=== PATIENT | female | born 1940 | race Caucasian/White ===

== ENCOUNTER → 2016-08-09 | Outpatient (CLI) | payer MEDICARE ==
[2016-08-09 08:47] LABS: Basophils % (A) 1 %; CH 32.2; CHCM 33.8; Eosinophils # (A) 0.1 k/uL (0-0.7); Eosinophils % (A) 2 %; HCT 45.2 % (34.0-46.0); HDW 2.39; Luc # (Auto) 0.14; Luc % (Auto) 3; Lymphocytes # (A) 2.3 k/uL (1.0-4.8); Lymphocytes % (A) 46 %; MCH 31.9 pg (25.0-35.0); MCHC 33.3 g/dL (31.0-37.0); MCV 95.8 fL (80.0-100.0); Mean Platelet Volume 7.6; Monocytes # (A) 0.4 k/uL (0-1.0); Monocytes % (A) 7 %; Neutrophils # (A) 2.1 k/uL (1.3-7.7); Neutrophils % (A) 42 %; RBC 4.72 m/uL (3.80-5.40); RDW 12.6 % (11.5-15.5); WBC 5.1 k/uL (3.8-10.6); WBC (Perox) 5.12
[2016-08-09 08:58] LABS: ALT 38 U/L (9-52); AST 27 U/L (14-36); Alkaline Phosphatase 89 U/L (38-126); Anion Gap 9 mmol/L; Blood Urea Nitrogen 14 mg/dL (7-17); Calcium 9.4 mg/dL (8.4-10.2); Carbon Dioxide 28 mmol/L (22-30); Chloride 106 mmol/L (98-107); Cholesterol 182 mg/dL (<200); Glucose 137 mg/dL (74-99); HDL Cholesterol 53 mg/dL (40-60); Non-African American GFR(MDRD) >60 (>60 ml/min/1.73 sqM); Potassium 4.4 mmol/L (3.5-5.1); Sodium 143 mmol/L (137-145); Total Bilirubin 0.7 mg/dL (0.2-1.3); Total Protein 6.8 g/dL (6.3-8.2); Triglycerides 109 mg/dL (<150)
[2016-08-10 08:27] LABS: Hemoglobin A1C 6.8 % (4.2-6.1)
== END | disposition home or self-care (01) ==
LOC: LABWHC1 07:23
PROVIDERS: ATTEND Internal Medicine Geriatric Medicine
DX: E03.9 Hypothyroidism, unspecified (principal); E13.42 Other specified diabetes mellitus with diabetic polyneuropathy; E55.9 Vitamin D deficiency, unspecified; M15.0 Primary generalized (osteo)arthritis
CPT/HCPCS: 36415; 80053; 80061; 82043; 82306; 83036; 84439; 84443; 85025

== ENCOUNTER → 2016-08-24 | Outpatient (CLI) | payer MEDICARE ==
--- NOTE | 2016-08-27 09:20 | MM ---
Reason for exam: screening (asymptomatic). Last mammogram was performed 1 year ago. History: Patient is postmenopausal. Cyst aspiration of the right breast. Physical Findings: A clinical breast exam by your physician is recommended on an annual basis and results should be correlated with mammographic findings. MG Screening Mammo w CAD Bilateral CC and MLO view(s) were taken. Prior study comparison: August 24, 2015, bilateral MG screening mammo w CAD. August 04, 2014, bilateral MG screening mammo w CAD. There are scattered fibroglandular densities. Benign calcifications. No significant changes when compared with prior studies. ASSESSMENT: Benign, BI-RAD 2 RECOMMENDATION: Routine screening mammogram of both breasts in 1 year.
== END | disposition home or self-care (01) ==
LOC: RADMAMWWP 07:59
PROVIDERS: ATTEND Internal Medicine Geriatric Medicine
DX: Z12.31 Encounter for screening mammogram for malignant neoplasm of breast (principal)

== ENCOUNTER 2016-12-13 13:45 | Observation (INO) | payer MEDICARE ==
--- NOTE | 2016-12-13 14:40 | ED ---
General Adult HPI - General Chief complaint: Extremity Injury, Upper Stated complaint: Arm Injury Time Seen by Provider: 12/13/16 14:16 Source: patient Mode of arrival: EMS Limitations: no limitations - History of Present Illness Initial comments: The patient is a 76-year-old female who presents to the ED with a chief complaint of fall and injury. The patient states that she was walking outside on her deck when her grandson accidentally stepped on the back of her shoe. This caused her to fall forward and land on her outstretched right wrist. She then fell onto her left side hitting her left shoulder against the deck. The patient notes that she also hit the left side of her forehead. Patient is mainly complaining of pain in her right wrist as well as her left upper arm. Patient also has injury to the bilateral kneecaps. Patient does take a daily aspirin 81 mg. She denies any loss of consciousness in the fall. She has been ambulatory since the fall occurred. - Related Data Home Medications Medication Instructions Recorded Confirmed Ascorbic Acid [Vitamin C] 500 mg PO DAILY 12/13/16 12/13/16 Aspirin EC [Ecotrin Low Dose] 81 mg PO HS 12/13/16 12/13/16 Calcium Lactate 252 mg PO BID 12/13/16 12/13/16 Cholecalciferol [Vitamin D3] 1,000 unit PO DAILY 12/13/16 12/13/16 Levothyroxine Sodium [Synthroid] 125 mcg PO DAILY 12/13/16 12/13/16 Pioglitazone [Actos] 15 mg PO DAILY 12/13/16 12/13/16 metFORMIN HCL [Glucophage] 1,000 mg PO DAILY 12/13/16 12/13/16 metFORMIN HCL [Glucophage] 500 mg PO HS 12/13/16 12/13/16 Allergies Allergy/AdvReac Type Severity Reaction Status Date / Time meperidine [From Demerol] AdvReac Nausea & Verified 12/13/16 15:17 Vomiting Review of Systems ROS Statement: Those systems with pertinent positive or pertinent negative responses have been documented in the HPI. ROS Other: All systems not noted in ROS Statement are negative. Constitutional: Denies: fever, chills, weakness Eyes: Denies: vision change ENT: Denies: ear pain, throat pain, dental pain Respiratory: Denies: cough, dyspnea, wheezes, hemoptysis, stridor Cardiovascular: Denies: chest pain, palpitations, dyspnea on exertion Endocrine: Denies: fatigue Gastrointestinal: Denies: abdominal pain, nausea, vomiting, diarrhea, constipation Genitourinary: Denies: urgency, dysuria, frequency, hematuria Musculoskeletal: Reports: other (left shoulder pain and right wrist pain) Skin: Denies: rash, lesions Neurological: Denies: headache, weakness Psychiatric: Denies: anxiety, depression Past Medical History Past Medical History: Diabetes Mellitus, Thyroid Disorder History of Any Multi-Drug Resistant Organisms: None Reported Past Surgical History: Hysterectomy, Orthopedic Surgery Past Psychological History: No Psychological Hx Reported Smoking Status: Never smoker Past Alcohol Use History: None Reported Past Drug Use History: None Reported General Exam Limitations: no limitations General appearance: alert, in no apparent distress Head exam: Present: atraumatic, normocephalic Eye exam: Present: normal appearance Pupils: Present: normal accommodation ENT exam: Present: normal exam, mucous membranes moist Neck exam: Present: normal inspection, other (no tenderness to palpation of the spinous processes in the cervical spine) Respiratory exam: Present: normal lung sounds bilaterally. Absent: respiratory distress, wheezes, rales, rhonchi, stridor, chest wall tenderness Cardiovascular Exam: Present: regular rate, normal rhythm GI/Abdominal exam: Present: soft. Absent: distended, tenderness, guarding, rebound Extremities exam: Present: tenderness (over the proximal humerus and right wrist ), normal capillary refill, other (Patient has pain with any movement of the left shoulder. This arm is held in internal rotation and flexion of the elbow. Distal PMS noted to be intact. The right wrist is painful with flexion and extension. Distal PMS noted to be intact.) Back exam: Present: normal inspection, full ROM Neurological exam: Present: alert, oriented X3 Psychiatric exam: Present: normal affect, normal mood Skin exam: Present: warm, dry, intact Course Vital Signs 12/13/16 12/13/16 12/13/16 14:07 16:57 18:53 Temperature 97.6 F 98.7 F Pulse Rate 106 H 78 97 Pulse Rate [ Pulse Oximetery ] Respiratory 18 18 16 Rate Blood Pressure 139/63 151/67 183/78 Blood Pressure [Left Arm] O2 Sat by Pulse 96 94 L 100 Oximetry 12/13/16 12/13/16 12/13/16 18:57 18:58 19:03 Temperature Pulse Rate 94 87 88 Pulse Rate [ Pulse Oximetery ] Respiratory 18 18 18 Rate Blood Pressure 164/56 165/73 163/72 Blood Pressure [Left Arm] O2 Sat by Pulse 98 98 98 Oximetry 12/13/16 12/13/16 12/13/16 19:08 19:13 19:23 Temperature Pulse Rate 90 88 85 Pulse Rate [ Pulse Oximetery ] Respiratory 18 18 18 Rate Blood Pressure 164/70 141/57 157/72 Blood Pressure [Left Arm] O2 Sat by Pulse 97 98 99 Oximetry 12/13/16 21:32 Temperature 98.1 F Pulse Rate Pulse Rate [ 85 Pulse Oximetery ] Respiratory 16 Rate Blood Pressure Blood Pressure 145/77 [Left Arm] O2 Sat by Pulse 96 Oximetry EKG Findings - EKG Comments: EKG Findings:: EKG demonstrates NSR with a left bundle branch block. There are no concerning changes noted. Procedures - Procedural Sedation Procedural Sedation Start Time: 18:45 Procedural Sedation Stop Time: 19:15 Indications: fracture/dislocation reduction ASA Class: II Mallampati Airway Score: 3 Preparation: manager cardiac cath applied, pulse oximeter, supplemental O2 applied, reversal agents at bedside, suction/airway equipment at bedside, IV secured IV Propofol Dose (mgs): 160 Complications: none Interventions: oxygen applied, airway repositioned Patient Tolerated Procedure: well Medical Decision Making - Medical Decision Making The patient is a 76-year-old female who presents to the ED following a fall that occurred earlier today. The patient had a mechanical fall, landing on her right outstretched wrist and left shoulder. Will check x-rays of these extremities. Will also check x-ray of chest and pelvis. CT of the head and C- spine given patient's fall with head injury on aspirin. Check basic lab work. Provide patient with narcotics for pain control. 7:15 PM Patient noted to have a comminuted fracture of the left proximal humerus. Patient was placed in a coaptation splint by Dr. Grullon under procedural sedation. He requested that a small reusable splint be placed on the patient's right wrist. A cast will be placed tomorrow. Unfortunately, we do not have such a splint and, as such, a volar splint was put into place. The patient will be admitted to Dr. Braaksma. I have placed Dr. Chung on consult from Internal Medicine for medical management at Dr. Grullon's request. The patient 's pain is well-controlled at the time of admission. PT and OT has been placed on consult. - Lab Data Result diagrams: 12/13/16 15:36 12/13/16 15:36 Lab Results 12/13/16 12/13/16 12/13/16 Range/Units 15:36 15:36 15:36 WBC 7.2 (3.8-10.6) k/uL RBC 4.48 (3.80-5.40) m/uL Hgb 14.5 (11.4-16.0) gm/dL Hct 42.7 (34.0-46.0) % MCV 95.3 (80.0-100.0) fL MCH 32.4 (25.0-35.0) pg MCHC 34.0 (31.0-37.0) g/dL RDW 13.3 (11.5-15.5) % Plt Count 182 (150-450) k/uL PT 10.9 (9.0-12.0) sec INR 1.1 (<1.1) APTT 19.6 L (22.0-30.0) sec Sodium 137 (137-145) mmol/L Potassium 5.4 H (3.5-5.1) mmol/L Chloride 108 H (98-107) mmol/L Carbon Dioxide 22 (22-30) mmol/L Anion Gap 7 mmol/L BUN 21 H (7-17) mg/dL Creatinine 0.65 (0.52-1.04) mg/dL Est GFR (MDRD) Af Amer >60 (>60 ml/min/1.73 sqM) Est GFR (MDRD) Non-Af >60 (>60 ml/min/1.73 sqM) Glucose 178 H (74-99) mg/dL Calcium 9.4 (8.4-10.2) mg/dL Magnesium 1.9 (1.6-2.3) mg/dL Disposition Clinical Impression: Fracture of proximal humerus, Fracture of radius, Fall, Bilateral knee effusions Disposition: ADMITTED IP TO THIS [facility] Condition: Stable Decision to Admit Reason: Admit from EC Decision Date: 12/13/16 Decision Time: 19:15
[2016-12-13] MEDS ORDERED: HYDROmorphone 1 MG/ML 1 ML SYRINGE IVP STA ×2 (14:50→17:54)
[2016-12-13] MEDS ORDERED: ONDANSETRON 4 MG/2 ML VIAL IVP STA (14:51)
[2016-12-13] MEDS: SODIUM CHLORIDE 0.9% 1,000 ML IV SCH ×2 (15:34→22:14)
[2016-12-13 16:03] LABS: CH 32.3; CHCM 34.1; HCT 42.7 % (34.0-46.0); HDW 2.57; HGB 14.5 gm/dL (11.4-16.0); MCH 32.4 pg (25.0-35.0); MCV 95.3 fL (80.0-100.0); Mean Platelet Volume 8.1; RBC 4.48 m/uL (3.80-5.40); RDW 13.3 % (11.5-15.5); WBC 7.2 k/uL (3.8-10.6)
[2016-12-13 16:16] LABS: Anion Gap 7 mmol/L; Blood Urea Nitrogen 21 mg/dL (7-17); Calcium 9.4 mg/dL (8.4-10.2); Carbon Dioxide 22 mmol/L (22-30); Chloride 108 mmol/L (98-107); Glucose 178 mg/dL (74-99); Magnesium 1.9 mg/dL (1.6-2.3); Non-African American GFR(MDRD) >60 (>60 ml/min/1.73 sqM); Sodium 137 mmol/L (137-145)
[2016-12-13 16:17] LABS: Potassium 5.4 mmol/L (3.5-5.1)
--- NOTE | 2016-12-13 16:27 | CT ---
EXAMINATION TYPE: CT brain yaron lilly DATE OF EXAM: 12/13/2016 COMPARISON: NONE HISTORY: 76-year-old female with fall today. CT DLP: 1954.00 mGycm Automated exposure control for dose reduction was used. Technique: Examination of the head was done in axial plane without intravenous contrast. Coronal and sagittal reconstructions performed. CT of the cervical spine was obtained in axial plane without intravenous injection of contrast mater ial. Coronal and sagittal reformatted images were obtained from the axial views for evaluation of f ractures, spinal alignment and canal. FINDINGS: Head: Beam hardening artifact along the posterior aspect of the posterior cranial fossa causing some limita tions. Within this limitation, no evidence of acute intracranial hemorrhage, acute ischemic changes, mass, mass-effect, or extra-axial fluid collection. There is no effacement of cerebral sulci or basal suba rachnoid cisterns. There is no hydrocephalus. There is no midline shift. Hannah-white matter distinc tion is preserved. Mild patchy deep white matter hypodensities suggest chronic small vessel ischemic disease. No calvarial fracture. Orbits and globes are intact. Paranasal sinuses and mastoid air cells are well pneumatized. Cervical spine: No craniocervical junction of the midbody, predental space widening, or prevertebral soft tissue swel ling. No acute fracture. Moderate to advanced discussion plate degenerative change particularly at C5-C7 levels with disc oste ophyte complexes causing possibly moderate spinal canal stenosis at these levels. There is degenerative grade 1 anterolisthesis at C4-C5 and multilevel facet and uncovertebral joint a rthropathy, particularly towards the left. This causes variable moderate, moderate to severe neuroforaminal stenoses especially in the mid to lo wer cervical spine. Sagittal and coronal reformatted images confirm above findings. COMBINED IMPRESSION: 1. No acute intracranial abnormality seen. Mild patchy changes of chronic small vessel ischemic disea se. 2. 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 No acu te fracture.
--- NOTE | 2016-12-13 16:34 | XR ---
EXAMINATION TYPE: XR chest 1V DATE OF EXAM: 12/13/2016 COMPARISON: NONE HISTORY: 76-year-old female fall, rule out fracture TECHNIQUE: Single frontal view of the chest is obtained. FINDINGS: Heart is upper limits of normal in size. Ectatic/elongated thoracic aorta. Mild diffuse interstitial prominence. No consolidation, pneumothorax, or pleural effusion. IMPRESSION: 1. Ectatic/elongated thoracic aorta. Follow-up as indicated. 2. Otherwise, no acute process seen.
--- NOTE | 2016-12-13 16:37 | XR ---
EXAMINATION TYPE: 2 views left clavicle. 2 views left shoulder. 2 views left humerus. DATE OF EXAM: 12/13/2016 COMPARISON: NONE HISTORY: 76-year-old female fall and left arm pain FINDINGS: Left clavicle: No clavicular shaft fracture. AC joint is congruent. Left shoulder: Subacromial space is preserved. No acute fracture or dislocation seen. Left humerus: Mildly comminuted spiral fracture of the proximal third to mid humeral shaft with poste rior apex angulation. COMBINED IMPRESSION (LEFT UPPER EXTREMITY): Mildly comminuted spiral fracture of the humeral shaft with mild posterior apex angulation.
[2016-12-13 16:38] LABS: INR 1.1 (<1.1); Prothrombin Time 10.9 sec (9.0-12.0)
--- NOTE | 2016-12-13 16:40 | XR ---
EXAMINATION TYPE: XR wrist complete RT DATE OF EXAM: 12/13/2016 COMPARISON: NONE HISTORY: Wrist pain TECHNIQUE: 4 views FINDINGS: There is slight cortical irregularity on the posterior distal radius on the lateral view th at is suspicious for nondisplaced fracture. Carpal bones appear intact. Joint spaces are fairly dede l. There is mild spurring at the first carpometacarpal joint. IMPRESSION: I suspect a nondisplaced 2 cm intra-articular chip fracture of the posterior distal radia l metaphysis that extends to the radiocarpal joint.
[2016-12-13 16:42] LABS: Partial Thromboplastin Time 19.6 sec (22.0-30.0)
--- NOTE | 2016-12-13 16:42 | XR ---
EXAMINATION TYPE: AP view pelvis. 3 views each knee. DATE OF EXAM: 12/13/2016 COMPARISON: NONE HISTORY: 76-year-old female with fall and pain FINDINGS: Pelvis: Degenerative changes at the pubic symphysis. No acute fracture seen. There mild degenerative changes at the hips. Knees: Mild degenerative spurring and suggestion of mild medial compartment joint space narrowing on the lef t. There is a small knee joint effusion on the left. Extensor mechanism is intact. Some meniscal chondrocalcinosis noted on the right. No acute fracture or dislocation seen. COMBINED IMPRESSION (PELVIS AND BILATERAL KNEES): 1. Pelvis without acute osseous abnormality seen. 2. Left knee with small knee joint effusion. No acute osseous abnormality seen. If concern for undergraduate intern al arrangement or occult bony injury, follow-up MRI. 3. Right knee without acute osseous abnormality seen. Mild tricompartmental degenerative spurring.
[2016-12-13] MEDS ORDERED: PROPOFOL 10 MG/ML 20 ML VIAL IV STA (18:17)
[2016-12-13] MEDS ORDERED: NALOXONE 0.4 MG/ML 1 ML VIAL IV PRN (19:16)
[2016-12-13] MEDS ORDERED: HYDROmorphone 1 MG/ML 1 ML SYRINGE IV PRN (19:16)
--- NOTE | 2016-12-13 19:19 | P.HPOR ---
History of Present Illness H&P Date: 12/13/16 The patient is a 76-year-old female with a medical history significant for type 2 diabetes and a thyroid disorder who was brought to the emergency department with multiple extremity complaints. Earlier today the patient was walking down her deck when her grandson stepped on the back of her foot causing her to fall. She denies hitting her head or losing consciousness but had multiple extremity complaints. She was brought to the emergency department where x-rays showed a displaced humeral shaft fracture and a nondisplaced right distal radius fracture. Orthopedics was consulted due to an inability of the patient to safely discharge home. At the time of my evaluation the patient is complaining of left arm pain, right forearm pain, and left knee pain. Past Medical History Past Medical History: Diabetes Mellitus, Thyroid Disorder History of Any Multi-Drug Resistant Organisms: None Reported Past Surgical History: Hysterectomy, Orthopedic Surgery Past Psychological History: No Psychological Hx Reported Smoking Status: Never smoker Past Alcohol Use History: None Reported Past Drug Use History: None Reported Medications and Allergies Home Medications Medication Instructions Recorded Confirmed Type Ascorbic Acid [Vitamin C] 500 mg PO DAILY 12/13/16 12/13/16 History Aspirin EC [Ecotrin Low Dose] 81 mg PO HS 12/13/16 12/13/16 History Calcium Lactate 252 mg PO BID 12/13/16 12/13/16 History Cholecalciferol [Vitamin D3] 1,000 unit PO DAILY 12/13/16 12/13/16 History Levothyroxine Sodium [Synthroid] 125 mcg PO DAILY 12/13/16 12/13/16 History Pioglitazone [Actos] 15 mg PO DAILY 12/13/16 12/13/16 History metFORMIN HCL [Glucophage] 1,000 mg PO DAILY 12/13/16 12/13/16 History metFORMIN HCL [Glucophage] 500 mg PO HS 12/13/16 12/13/16 History Allergies Allergy/AdvReac Type Severity Reaction Status Date / Time meperidine [From Demerol] AdvReac Nausea & Verified 12/13/16 15:17 Vomiting Physical Examination On exam the patient is in moderate distress secondary to pain in her left arm. Her head is normocephalic and atraumatic. She has no cervical tenderness. She demonstrates nonlabored breathing with symmetric chest expansion. Her abdomen is obese but nontender. She has palpable pulses in all extremities. On examination of the left upper extremity there is diffuse swelling and ecchymosis about the arm but no open wounds. She has exquisite tenderness in the arm. The arm is soft and compressible. She has no tenderness along her elbow, forearm, wrist or hands. Sensation is intact to light touch in the distribution of the median ulnar radial and axillary nerves. On examination of the patient's right upper extremity there is no obvious swelling or discoloration of the skin. She has no tenderness over her right shoulder, elbow, or forearm. She has exquisite tenderness at the right wrist. Right upper extremity is motor and sensory intact. On examination of the left lower extremity she has diffuse swelling over the anterior aspect of her knee and the knee effusion. She has no open wounds. She has no pain with passive range of motion of the hip. The thigh is nontender. She has no tenderness down the anterior crest of the tibia. She has no tenderness in her ankle or foot. She is able to actively plantarflex and dorsiflex her ankle and her toes. Examination of the right leg shows no obvious deformities and no overlying skin lesions. She has no tenderness throughout the right leg. Results X-rays of the patient's left humerus show a displaced and angulated midshaft spiral humerus fracture. X-rays of the right wrist show a nondisplaced dorsal lunate facet fracture. X-rays the patient's left knee show arthritis but no acute fractures. - Labs Labs: Abnormal Lab Results - Last 24 Hours (Table) 12/13/16 12/13/16 Range/Units 15:36 15:36 APTT 19.6 L (22.0-30.0) sec Potassium 5.4 H (3.5-5.1) mmol/L Chloride 108 H (98-107) mmol/L BUN 21 H (7-17) mg/dL Glucose 178 H (74-99) mg/dL H & H 12/13/16 Range/Units 15:36 Hgb 14.5 (11.4-16.0) gm/dL Hct 42.7 (34.0-46.0) % Coagulation 12/13/16 Range/Units 15:36 INR 1.1 (<1.1) Result Diagrams: 12/13/16 15:36 12/13/16 15:36 Assessment and Plan (1) Fx humerus shaft-closed Status: Acute Plan: The patient has a displaced and angulated humeral shaft fracture and a nondisplaced distal radius lunate facet fracture. I discussed with the patient and her family that both of these injuries will likely be nonoperative. We discussed the treatment of humeral shaft fractures which includes a period of immobilization in a coaptation splint with valgus mold for 1 week followed by 10 -12 weeks of a fracture brace. The patient had a coaptation splint applied in the emergency department. I recommended placement of a removable wrist splint for the right wrist and a 5 pound weight lifting restriction. The x-rays of the left knee show arthritis but no acute fractures. We will monitor these injuries and repeat x-rays are get advanced imaging if her symptoms worsen or do not improve. Due to the patient's multiple extremity injuries she is unsafe to discharge home. She will be admitted under my care for discharge planning. Internal medicine consult has been placed for assistance with medical management while she is in the hospital. We'll consult social work for discharge planning. After the patient is discharged from the hospital she will need follow-up in the office in 1 week for coaptation splint removal and placement of a fracture brace. I discussed with the patient's family the possibility of fracture nonunion, fracture malunion, displacement and the splint and the possible need for surgery. I will also check a 25-hydroxy vitamin D level and start the patient on calcium and vitamin D for bone health. Procedure: Verbal consent for application of splint to the left arm was obtained. The emergency department physician applied a propofol sedation. The patient had rings on both the right and left hand which were removed prior to placement of her splint. Once the patient was adequately sedated she was sat up in the hospital bed and her arm was abducted. A very well-padded coaptation splint was applied starting in the elbow extending around the elbow up the lateral border of the humerus covering the proximal humerus. The splint was wrapped with an Frantz wrap and a valgus mold was applied. Once the splint material had hardened a sling was applied. Time with Patient: Greater than 30
[2016-12-13 21:33] VITALS: RESP 16
[2016-12-13 22:55] VITALS: BMI 41.6
[2016-12-13] MEDS: HYDROcodone/APAP 5-325MG 1 EACH TAB PO PRN (22:58)
[2016-12-14] MEDS: CALCIUM CARBONATE 500 MG CHEWABLE PO SCH ×3 (04:50→16:43)
[2016-12-14] MEDS: HYDROcodone/APAP 5-325MG 1 EACH TAB PO PRN ×2 (04:52→11:01)
[2016-12-14] MEDS ORDERED: HYDROcodone/APAP 7.5-325MG 1 EACH TAB PO PRN ×2 (11:23)
[2016-12-14] MEDS ORDERED: ACETAMINOPHEN TAB 325 MG TAB PO PRN (11:24)
[2016-12-14] MEDS ORDERED: CHOLECALCIFEROL 1,000 UNIT TAB PO SCH (12:00)
--- NOTE | 2016-12-14 12:14 | P.DS ---
Providers Date of admission: 12/13/16 19:16 Expected date of discharge: 12/14/16 Attending physician: Ehsan Grullon Consults: 12/13/16 19:18 Consult Physician Routine Consulting Provider: Maynor Chung Consult Reason/Comments: Medical Management Do you want consulting provider notified?: Yes Primary care physician: Michele Mckoy - Discharge Diagnosis(es) (1) Fracture of radius Current Visit: Yes Status: Acute Priority: Medium (2) Fx humerus shaft-closed Current Visit: Yes Status: Acute Priority: Medium Hospital Course: Patient was admitted through the emergency department department on 12/13/2016 after a fall at home. She suffered fractures to the left mid humerus and right distal radial facet. She was placed in a coaptation splint of the left shoulder and upper extremity in a removable wrist splint on the right per Dr. Grullon. Her hospital course has remained without complication. On day of discharge her pain is controlled with by mouth medication. She is tolerating by mouth meds and diet, voiding without difficulty, positive flatus. She is denying new complaints. She denies abdominal pain, calf pain, numbness or tingling. The splints are well fitting. Neurovascular status is intact distally in both upper extremities. Less than 2 second second cap refill is present. Motor is intact in bilateral upper and lower extremities. Calves are soft and nontender. Abdomen is soft and nontender. She is afebrile, vital signs are stable, labs within acceptable ranges. Review of systems is negative for fever, chills, chest pain, shortness breath, nausea, vomiting, dizziness, headaches, rashes, bleeding, slurred speech or other. Procedures: Splint applications to the left upper extremity and right upper extremity Patient Condition at Discharge: Stable Plan - Discharge Summary New Discharge Prescriptions: New Docusate [Colace] 100 mg PO BID #60 capsule HYDROcodone/APAP 7.5-325MG [Glasco 7.5-325] 1 - 2 tab PO Q6HR PRN #60 tab PRN Reason: Pain No Action Cholecalciferol [Vitamin D3] 1,000 unit PO DAILY Ascorbic Acid [Vitamin C] 500 mg PO DAILY Calcium Lactate 252 mg PO BID metFORMIN HCL [Glucophage] 1,000 mg PO DAILY metFORMIN HCL [Glucophage] 500 mg PO HS Pioglitazone [Actos] 15 mg PO DAILY Aspirin EC [Ecotrin Low Dose] 81 mg PO HS Levothyroxine Sodium [Synthroid] 125 mcg PO DAILY Discharge Medication List Ascorbic Acid [Vitamin C] 500 mg PO DAILY 12/13/16 [History] Aspirin EC [Ecotrin Low Dose] 81 mg PO HS 12/13/16 [History] Calcium Lactate 252 mg PO BID 12/13/16 [History] Cholecalciferol [Vitamin D3] 1,000 unit PO DAILY 12/13/16 [History] Levothyroxine Sodium [Synthroid] 125 mcg PO DAILY 12/13/16 [History] Pioglitazone [Actos] 15 mg PO DAILY 12/13/16 [History] metFORMIN HCL [Glucophage] 1,000 mg PO DAILY 12/13/16 [History] metFORMIN HCL [Glucophage] 500 mg PO HS 12/13/16 [History] Docusate [Colace] 100 mg PO BID #60 capsule 12/14/16 [Rx] HYDROcodone/APAP 7.5-325MG [Glasco 7.5-325] 1 - 2 tab PO Q6HR PRN #60 tab [Rx] Follow up Appointment(s)/Referral(s): Michele Mckoy MD [Primary Care Provider] - 1-2 days Ehsan Grullon MD [Medical Doctor] - 1 Week Activity/Diet/Wound Care/Special Instructions: Nonweightbearing left upper extremity Nonweightbearing right wrist Maintain splint to the left upper extremity and right upper extremity Take meds as directed Follow-up with Dr. Grullon in office in 1 week, [phone] Discharge Disposition: TRANSFER TO SNF/ECF
--- NOTE | 2016-12-14 12:45 | P.CONS ---
History of Present Illness - Reason for Consult Consult date: 12/14/16 Medical management Requesting physician: Ehsan Grullon - History of Present Illness This is a 76-year-old female one of Dr. Mckoy with a previous medical history significant for diabetes mellitus type 2, hypothyroidism, osteoarthritis , osteopenia, who was walking at the deck yesterday showing her son what needs to be done for her would deck and she was going defer stepdown unfortunately her son stepped on the back of her shoe and she couldn't 3 her foot and she ended up falling down landing on the left shoulder and right arm, she sustained a humeral fracture as well as wrist fracture she was brought into the emergency room at [facility] where she was seen and evaluated by orthopedic surgery Dr. Grullon, and she was placed in the splint and a cast and she was admitted to hospital were asked to see the patient from diabetes management as well as hypothyroidism management. Patient is sitting up in bed she does appear to be in acute distress. She denies any chest pain or shortness breath she has no abdominal pain, nausea, vomiting, diarrhea, she is planing to go for [facility] for physical therapy rehabitation. Review of Systems All systems: negative Constitutional: Denies anorexia, Denies chills, Denies chronic headaches, Denies daytime sleepiness, Denies fatigue, Denies fever, Denies lethargy, Denies malaise, Denies poor appetite, Denies weakness, Denies weight loss Eyes: denies blurred vision, denies pain Ears, nose, mouth and throat: Denies dental pain, Denies dysphagia, Denies headache, Denies mouth pain, Denies sore throat Cardiovascular: Denies chest pain, Denies decreased exercise tolerance, Denies dyspnea on exertion, Denies edema, Denies leg edema, Denies lightheadedness, Denies palpitations, Denies shortness of breath, Denies syncope Respiratory: Denies cough Gastrointestinal: Denies abdominal pain, Denies belching, Denies bloating, Denies constipation, Denies diarrhea, Denies dyspepsia, Denies excessive gas, Denies heartburn, Denies hematemesis, Denies hematochezia, Denies jaundice, Denies loss of appetite, Denies melena, Denies nausea, Denies vomiting Genitourinary: Denies dysuria, Denies hematuria, Denies urgency, Denies urinary frequency Musculoskeletal: Denies myalgias Musculoskeletal: right: hand pain, hand stiffness, hand swelling, wrist pain, wrist stiffness, wrist swelling, left: elbow pain, elbow stiffness, elbow swelling, bilateral: shoulder pain, shoulder stiffness, shoulder swelling, absent: ankle pain, ankle stiffness, ankle swelling, foot pain, foot stiffness, foot swelling, hip pain, hip stiffness, hip swelling, knee pain, knee stiffness , knee swelling Integumentary: Denies pruritus, Denies rash Neurological: Denies aphasia, Denies ataxia, Denies change in speech, Denies confusion, Denies gait dysfunction, Denies head injury, Denies headaches, Denies loss of vision, Denies memory loss, Denies numbness, Denies weakness Psychiatric: Denies anxiety, Denies depression Endocrine: Denies fatigue, Denies weight change Past Medical History Past Medical History: Diabetes Mellitus, Osteoarthritis (OA), Thyroid Disorder History of Any Multi-Drug Resistant Organisms: None Reported Past Surgical History: Hysterectomy, Orthopedic Surgery Additional Past Surgical History / Comment(s): Bilateral cateract removal and intraocular lens inplants Past Psychological History: No Psychological Hx Reported Smoking Status: Never smoker Past Alcohol Use History: None Reported Additional Past Alcohol Use History / Comment(s): Patient is a lifelong nonsmoker. No medical marijuana, marijuana, straight. Use. She drinks wine occasionally. Past Drug Use History: None Reported - Past Family History Father Additional Family Medical History / Comment(s): Father at age 47 with history of diabetes and myocardial infarction at age 38. Mother Additional Family Medical History / Comment(s): Mother at age 100 with known cardiomyopathy. Sister(s) Additional Family Medical History / Comment(s): Patient has 3 sisters with no major medical problems. Patient does not have any brothers. Daughter(s) Additional Family Medical History / Comment(s): Patient has 3 daughters no major medical problems. Medications and Allergies Home Medications Medication Instructions Recorded Confirmed Type Ascorbic Acid [Vitamin C] 500 mg PO DAILY 12/13/16 12/13/16 History Aspirin EC [Ecotrin Low Dose] 81 mg PO HS 12/13/16 12/13/16 History Calcium Lactate 252 mg PO BID 12/13/16 12/13/16 History Cholecalciferol [Vitamin D3] 1,000 unit PO DAILY 12/13/16 12/13/16 History Levothyroxine Sodium [Synthroid] 125 mcg PO DAILY 12/13/16 12/13/16 History Pioglitazone [Actos] 15 mg PO DAILY 12/13/16 12/13/16 History metFORMIN HCL [Glucophage] 1,000 mg PO DAILY 12/13/16 12/13/16 History metFORMIN HCL [Glucophage] 500 mg PO HS 12/13/16 12/13/16 History Allergies Allergy/AdvReac Type Severity Reaction Status Date / Time meperidine [From Demerol] AdvReac Nausea & Verified 12/13/16 15:17 Vomiting Physical Exam Vitals: Vital Signs Temp Pulse Pulse Resp BP BP Pulse Ox 12/14/16 07:00 98.3 F 77 16 147/65 98 12/14/16 04:50 16 12/14/16 01:02 97.5 F L 86 16 114/61 98 12/13/16 21:32 98.1 F 85 16 145/77 96 12/13/16 19:23 85 18 157/72 99 12/13/16 19:13 88 18 141/57 98 12/13/16 19:08 90 18 164/70 97 12/13/16 19:03 88 18 163/72 98 12/13/16 18:58 87 18 165/73 98 12/13/16 18:57 94 18 164/56 98 12/13/16 18:53 97 16 183/78 100 12/13/16 16:57 98.7 F 78 18 151/67 94 L 12/13/16 14:07 97.6 F 106 H 18 139/63 96 Intake and Output 12/13/16 12/14/16 12/14/16 22:59 06:59 14:59 Intake Total 750 100 Output Total 450 Balance 300 100 Intake: Intake, IV Titration 750 Amount Sodium Chloride 0.9% 1, 750 000 ml @ 125 mls/hr IV . Q8H [facility] Rx#:[id number] Oral 100 Output: Urine 450 Other: Voiding Method Bedside Commode Bedside Commode # Voids 1 1 Weight 110 kg - Constitutional General appearance: mild distress - EENT Eyes: anicteric sclerae, EOMI, PERRLA, no ptosis, no scleral icterus, normal appearance ENT: hearing grossly normal, NA/AT, normal oropharynx, no thrush Ears: bilateral: normal - Neck Neck: no lymphadenopathy, normal ROM, no rigidity, no stridor, no thyromegaly Carotids: bilateral: upstroke normal Thyroid: bilateral: normal size - Respiratory Respiratory: bilateral: diminished, negative: dullness, rales, rhonchi, wheezing , prolonged expiration, prolonged inspiration - Cardiovascular Rhythm: regular Heart sounds: normal: S1, S2 Abnormal Heart Sounds: no systolic murmur, no S3 Gallop, no S4 Gallop, no click - Gastrointestinal General gastrointestinal: normal bowel sounds, soft, no splenomegaly, no tenderness, no umbilical hernia, no ventral hernia - Integumentary Integumentary: normal, normal turgor - Neurologic Neurologic: CNII-XII intact - Musculoskeletal Musculoskeletal: gait normal - Psychiatric Psychiatric: A&O x's 3, appropriate affect, intact judgment & insight Results CBC & Chem 7: 12/13/16 15:36 12/13/16 15:36 Labs: Abnormal Lab Results - Last 24 Hours (Table) 12/13/16 12/13/16 12/13/16 Range/Units 15:36 15:36 15:36 APTT 19.6 L (22.0-30.0) sec Potassium 5.4 H (3.5-5.1) mmol/L Chloride 108 H (98-107) mmol/L BUN 21 H (7-17) mg/dL Glucose 178 H (74-99) mg/dL Vitamin D 25-Hydroxy 28.0 L (30.0-100.0) ng/mL Assessment and Plan Plan: Assessment and plan: 1. Left mid shaft humerus spiral fracture displaced. Patient is currently in coaptation splint. Continue patient on current management as per orthopedic surgery. 2. Right lunate bone fracture. Patient is currently in a right wrist splint. 3. Left knee contusion without any evidence of fracture. Continue current pain management. 4. Diabetes mellitus type 2. Continue consistent carbohydrate diet. Continue metformin thousand milligrams morning and 500 mg in evening, continue Actos 15 mg orally once every day, the gym before each meal and bedtime. 5. Hyperthyroidism. Continue Synthroid 125 g orally once every day. 6. Vitamin D deficiency. Continue patient on vitamin D supplement. 7. Saphenous/acidosis. Continue patient on calcium and vitamin D, patient may need to be started on prolia as an outpatient. 8. DVT prophylaxis. Early ablation, bilateral knee-high GIANNA hose. 9. GI prophylaxis. Continue current PPI. 10. Physical therapy evaluation for possible subacute rehab. 11. Thank you for the consult we'll follow with you.
[2016-12-14 14:45] VITALS: BP 184/78; PULSE 80; TEMP 98.4
[2016-12-14] MEDS: SODIUM CHLORIDE 0.9% 1,000 ML IV SCH (16:42)
[2016-12-14] MEDS ORDERED: metFORMIN 500 MG TAB PO SCH (21:00)
[2016-12-14] MEDS ORDERED: CALCIUM CARB-VIT D 250MG-125UN 1 EACH TAB PO SCH (21:00)
[2016-12-15] MEDS ORDERED: LEVOTHYROXINE 125 MCG TAB PO SCH (06:30)
[2016-12-15] MEDS ORDERED: metFORMIN 500 MG TAB PO SCH (07:30)
[2016-12-15] MEDS ORDERED: PIOGLITAZONE 15 MG TAB PO SCH (09:00)
[2016-12-15] MEDS ORDERED: CHOLECALCIFEROL 1,000 UNIT TAB PO SCH (09:00)
== END 2016-12-14 17:45 ==
LOC: EC 13:45 → 3SUR 19:16
PROVIDERS: ADMIT Orthopaedic Surgery; ATTEND Orthopaedic Surgery
DX: S42.342A Displaced spiral fracture of shaft of humerus, left arm, initial encounter for closed fracture (principal); S52.501A Unspecified fracture of the lower end of right radius, initial encounter for closed fracture; W01.0XXA Fall on same level from slipping, tripping and stumbling without subsequent striking against object, initial encounter; Y93.01 Activity, walking, marching and hiking; Y92.008 Other place in unspecified non-institutional (private) residence as the place of occurrence of the external cause; E11.9 Type 2 diabetes mellitus without complications; E07.9 Disorder of thyroid, unspecified; M25.562 Pain in left knee; Z79.82 Long term (current) use of aspirin; Z79.899 Other long term (current) drug therapy; Z79.84 Long term (current) use of oral hypoglycemic drugs; Z88.5 Allergy status to narcotic agent; E66.9 Obesity, unspecified; Z68.41 Body mass index [BMI] 40.0-44.9, adult; M85.80 Other specified disorders of bone density and structure, unspecified site; E03.9 Hypothyroidism, unspecified; M19.90 Unspecified osteoarthritis, unspecified site; Z83.3 Family history of diabetes mellitus; Z82.49 Family history of ischemic heart disease and other diseases of the circulatory system; S80.02XA Contusion of left knee, initial encounter; E55.9 Vitamin D deficiency, unspecified; E87.2 Acidosis
CPT/HCPCS: 24505; 99156; 99157; 96376; 96374; 96375; 99284; 36415; 93005; 97162; 97166; 80048; 83735; 85027; 85610; 85730; 82306; 71010; 73562; 72170; 73000; 73020; 73060; 73110; 72125; 70450; G0378 ×2; J2405; J1170; J2704

== ENCOUNTER → 2017-02-13 | Outpatient (CLI) | payer MEDICARE ==
[2017-02-13 10:47] LABS: Basophils % (A) 1 %; CH 31.4; CHCM 33.3; Eosinophils # (A) 0.1 k/uL (0-0.7); Eosinophils % (A) 2 %; HCT 43.3 % (34.0-46.0); HDW 2.42; HGB 14.8 gm/dL (11.4-16.0); Luc # (Auto) 0.14; Luc % (Auto) 3; Lymphocytes # (A) 2.2 k/uL (1.0-4.8); Lymphocytes % (A) 44 %; MCH 32.3 pg (25.0-35.0); MCHC 34.2 g/dL (31.0-37.0); MCV 94.5 fL (80.0-100.0); Mean Platelet Volume 6.5; Monocytes # (A) 0.3 k/uL (0-1.0); Monocytes % (A) 6 %; Neutrophils # (A) 2.3 k/uL (1.3-7.7); Neutrophils % (A) 45 %; RBC 4.58 m/uL (3.80-5.40); RDW 13.2 % (11.5-15.5); WBC (Perox) 5.31
[2017-02-13 11:01] LABS: ALT 29 U/L (9-52); AST 23 U/L (14-36); Alkaline Phosphatase 115 U/L (38-126); Anion Gap 9 mmol/L; Blood Urea Nitrogen 20 mg/dL (7-17); Calcium 9.4 mg/dL (8.4-10.2); Carbon Dioxide 25 mmol/L (22-30); Chloride 106 mmol/L (98-107); Cholesterol 170 mg/dL (<200); Glucose 134 mg/dL (74-99); HDL Cholesterol 51 mg/dL (40-60); Non-African American GFR(MDRD) >60 (>60 ml/min/1.73 sqM); Potassium 4.2 mmol/L (3.5-5.1); Sodium 140 mmol/L (137-145); Total Bilirubin 0.5 mg/dL (0.2-1.3); Total Protein 6.9 g/dL (6.3-8.2)
[2017-02-13 13:59] LABS: Hemoglobin A1C 6.8 % (4.2-6.1)
[2017-02-13 17:15] LABS: Urine Creatinine 78.1 mg/dL
== END | disposition home or self-care (01) ==
LOC: LABWHC1 10:19
PROVIDERS: ATTEND Internal Medicine Geriatric Medicine
DX: E78.00 Pure hypercholesterolemia, unspecified (principal); D64.9 Anemia, unspecified; I44.7 Left bundle-branch block, unspecified; E03.9 Hypothyroidism, unspecified; E13.42 Other specified diabetes mellitus with diabetic polyneuropathy
CPT/HCPCS: 36415; 80053; 80061; 82043; 82570; 83036; 84439; 84443; 85025

== ENCOUNTER → 2017-09-03 | Outpatient (CLI) | payer MEDICARE ==
--- NOTE | 2017-09-04 13:15 | MM ---
Reason for exam: screening (asymptomatic). Last mammogram was performed 1 year ago. History: Patient is postmenopausal. Cyst aspiration of the right breast. Physical Findings: A clinical breast exam by your physician is recommended on an annual basis and results should be correlated with mammographic findings. MG Screening Mammo w CAD Bilateral CC and MLO view(s) were taken. Prior study comparison: August 24, 2016, bilateral MG screening mammo w CAD. August 24, 2015, bilateral MG screening mammo w CAD. There are scattered fibroglandular densities. No suspicious abnormality. No significant changes when compared with prior studies. ASSESSMENT: Negative, BI-RAD 1 RECOMMENDATION: Routine screening mammogram of both breasts in 1 year.
== END | disposition home or self-care (01) ==
LOC: RADMAMWWP 07:52
PROVIDERS: ATTEND Internal Medicine Geriatric Medicine
DX: Z12.31 Encounter for screening mammogram for malignant neoplasm of breast (principal)
CPT/HCPCS: 77067

== ENCOUNTER → 2017-10-22 | Outpatient (CLI) | payer MEDICARE ==
[2017-10-22 11:55] LABS: Basophils % (A) 1 %; Eosinophils # (A) 0.1 k/uL (0-0.7); Eosinophils % (A) 1 %; HCT 46.9 % (34.0-46.0); HGB 15.8 gm/dL (11.4-16.0); Lymphocytes # (A) 2.3 k/uL (1.0-4.8); Lymphocytes % (A) 40 %; MCH 30.9 pg (25.0-35.0); MCHC 33.6 g/dL (31.0-37.0); MCV 92.1 fL (80.0-100.0); Mean Platelet Volume 7.1; Monocytes # (A) 0.3 k/uL (0-1.0); Monocytes % (A) 6 %; Neutrophils # (A) 2.9 k/uL (1.3-7.7); Neutrophils % (A) 51 %; Platelet Count 241 k/uL (150-450); RBC 5.09 m/uL (3.80-5.40); RDW 12.7 % (11.5-15.5); WBC 5.7 k/uL (3.8-10.6)
[2017-10-22 12:03] LABS: Albumin 4.1 g/dL (3.5-5.0); Calcium 10.2 mg/dL (8.4-10.2); Potassium 4.5 mmol/L (3.5-5.1); Total Bilirubin 0.7 mg/dL (0.2-1.3); Total Protein 7.1 g/dL (6.3-8.2)
[2017-10-22 12:19] LABS: T4, Free (Free Thyroxine) 1.37 ng/dL (0.78-2.19)
[2017-10-22 21:22] LABS: Hemoglobin A1C 6.9 % (4.0-6.0)
== END | disposition home or self-care (01) ==
LOC: LABWHC1 11:04
PROVIDERS: ATTEND Internal Medicine Geriatric Medicine
DX: E03.9 Hypothyroidism, unspecified (principal); E78.00 Pure hypercholesterolemia, unspecified; E13.42 Other specified diabetes mellitus with diabetic polyneuropathy; I44.7 Left bundle-branch block, unspecified; R79.9 Abnormal finding of blood chemistry, unspecified
CPT/HCPCS: 36415; 80053; 80061; 83036; 84439; 84443; 85025

== ENCOUNTER → 2018-09-08 | Outpatient (CLI) | payer MEDICARE ==
[2018-09-08 10:38] LABS: Basophils % (A) 1 %; Eosinophils # (A) 0.1 k/uL (0-0.7); Eosinophils % (A) 2 %; HCT 44.8 % (34.0-46.0); HGB 14.7 gm/dL (11.4-16.0); Lymphocytes % (A) 37 %; MCH 31.3 pg (25.0-35.0); MCHC 32.9 g/dL (31.0-37.0); MCV 95.3 fL (80.0-100.0); Mean Platelet Volume 6.8; Monocytes # (A) 0.3 k/uL (0-1.0); Monocytes % (A) 6 %; Neutrophils # (A) 2.9 k/uL (1.3-7.7); Neutrophils % (A) 53 %; Platelet Count 187 k/uL (150-450); RDW 13.2 % (11.5-15.5); WBC 5.5 k/uL (3.8-10.6)
[2018-09-08 10:50] LABS: ALT 37 U/L (9-52); AST 26 U/L (14-36); Albumin 3.9 g/dL (3.5-5.0); Alkaline Phosphatase 85 U/L (38-126); Anion Gap 4 mmol/L; Blood Urea Nitrogen 15 mg/dL (7-17); Calcium 9.6 mg/dL (8.4-10.2); Carbon Dioxide 26 mmol/L (22-30); Chloride 112 mmol/L (98-107); Cholesterol 179 mg/dL (<200); Glucose 157 mg/dL (74-99); HDL Cholesterol 57 mg/dL (40-60); LDL Cholesterol,Calculated 104 mg/dL (0-99); Potassium 4.4 mmol/L (3.5-5.1); Sodium 142 mmol/L (137-145); Total Bilirubin 0.6 mg/dL (0.2-1.3); Total Protein 6.5 g/dL (6.3-8.2); Triglycerides 89 mg/dL (<150)
[2018-09-08 11:05] LABS: T4, Free (Free Thyroxine) 1.25 ng/dL (0.78-2.19)
--- NOTE | 2018-09-08 11:11 | BD ---
EXAMINATION TYPE: Axial Bone Density DATE OF EXAM: 09/08/2018 COMPARISON: 2013 CLINICAL HISTORY: M [age]. Postmenopausal female. Osteoporosis screening. Height: 5 FT 4 1/2 IN Weight: 223 FRAX RISK QUESTIONS: History of Fracture in Adulthood: YES Secondary Osteoporosis: RISK FACTORS HISTORY OF: History of Wrist Fracture: RT WRIST When: 2017 Surgery to Spine/Hip(right/left)/Wrist (right/left): RT WRIST When: 2017 Active: YES Postmenopausal woman: AGE [age] Lost more than 2 inches in height since high school: YES MEDICATIONS: Thyroid Medications: YES Which medication: LEVOTHYROXINE How Lon YEARS Additional Medications: METFORMIN , THYROID Additional History: EXAM MEASUREMENTS: Bone mineral densitometry was performed using the [employer] System. Bone mineral density as measured about the Lumbar spine is: ----- L1-L4(G/cm2): 1.130 T Score Values are as follows: ----- L2: -0.8 ----- L3: 0.0 ----- L4: 1.0 ----- L1-L4: -0.4 INCREASED 10.3 SINCE STUDY OF 2013 Bone mineral density about the R hip (g/cm2): 0.704 Bone mineral density about the L hip (g/cm2): 0.724 T Score values are as follows: -----R Neck: -2.4 -----L Neck: -2.3 -----R Total: -1.8 -----L Total: -1.0 DECREASED -5.8 SINCE STUDY OF 2013 IMPRESSION: Osteopenia (T Score between -2.5 and -1). There is slightly increased risk of fracture and the patient may be considered for treatment. Re-Screen 2-5 years. NOTE: T-SCORE=SD OF THE YOUNG ADULT MEAN.
[2018-09-08 20:09] LABS: Hemoglobin A1C 7.2 % (4.0-6.0)
--- NOTE | 2018-09-09 10:17 | MM ---
Reason for exam: screening (asymptomatic). Last mammogram was performed 1 year ago. History: Patient is postmenopausal. Cyst aspiration of the right breast. Physical Findings: A clinical breast exam by your physician is recommended on an annual basis and results should be correlated with mammographic findings. MG 3D Screening Mammo W/Cad Bilateral CC and MLO view(s) were taken. Prior study comparison: September 03, 2017, bilateral MG screening mammo w CAD. August 24, 2016, bilateral MG screening mammo w CAD. There are scattered fibroglandular densities. There are benign appearing round vascular calcifications bilaterally. There is chronic nodularity in the left breast. There is no discrete abnormality. ASSESSMENT: Benign, BI-RAD 2 RECOMMENDATION: Routine screening mammogram of both breasts in 1 year.
== END | disposition home or self-care (01) ==
LOC: RADMAMWWP 07:21
PROVIDERS: ATTEND Internal Medicine Geriatric Medicine
DX: Z12.31 Encounter for screening mammogram for malignant neoplasm of breast (principal); M85.80 Other specified disorders of bone density and structure, unspecified site; M15.0 Primary generalized (osteo)arthritis
CPT/HCPCS: 36415; 77063; 77067; 77080; 80053; 80061; 83036; 84439; 84443; 85025

== ENCOUNTER → 2019-03-16 | Outpatient (CLI) | payer MEDICARE ==
[2019-03-16 08:24] LABS: Basophils # (A) 0.1 k/uL (0-0.2); Basophils % (A) 1 %; Eosinophils # (A) 0.2 k/uL (0-0.7); Eosinophils % (A) 3 %; HCT 45.4 % (34.0-46.0); HGB 15.1 gm/dL (11.4-16.0); Lymphocytes # (A) 2.1 k/uL (1.0-4.8); Lymphocytes % (A) 43 %; MCH 31.2 pg (25.0-35.0); MCHC 33.2 g/dL (31.0-37.0); MCV 93.9 fL (80.0-100.0); Mean Platelet Volume 6.5; Monocytes # (A) 0.3 k/uL (0-1.0); Monocytes % (A) 6 %; Neutrophils # (A) 2.2 k/uL (1.3-7.7); Neutrophils % (A) 45 %; Platelet Count 225 k/uL (150-450); RBC 4.84 m/uL (3.80-5.40); RDW 12.8 % (11.5-15.5); WBC 4.8 k/uL (3.8-10.6)
[2019-03-16 16:14] LABS: African American GFR (CKD) 81.8 (60.0-200.0); Albumin 4.1 g/dL (3.80-4.90); Albumin/Globulin Ratio 2.16 (1.60-3.17); Anion Gap 3.8 mmol/L (4.00-12.00); Calcium 9.6 mg/dL (8.7-10.3); Carbon Dioxide 30.2 mmol/L (21.6-31.8); Chol/HDL Ratio 3.15; Globulin 1.9 g/dL (1.6-3.3); LDL Cholesterol,Calculated 104.6 mg/dL (0.0-131.0); Potassium 4.5 mmol/L (3.5-5.5); Total Bilirubin 0.8 mg/dL (0.2-1.2); VLDL Calculation 22.4 mg/dL (5.00-40.00)
[2019-03-16 16:22] LABS: T4, Free (Free Thyroxine) 1.3 ng/dL (0.80-1.80)
== END | disposition home or self-care (01) ==
LOC: LABWHC1 07:44
PROVIDERS: ATTEND Internal Medicine Geriatric Medicine
DX: E11.9 Type 2 diabetes mellitus without complications (principal); E03.9 Hypothyroidism, unspecified; D64.9 Anemia, unspecified
CPT/HCPCS: 36415; 80053; 80061; 82043; 82570; 83036; 84439; 84443; 85025

== ENCOUNTER → 2019-12-11 | Outpatient (CLI) | payer MEDICARE ==
--- NOTE | 2019-12-15 11:17 | MM ---
Reason for exam: screening (asymptomatic). Last mammogram was performed 1 year and 3 months ago. History: Patient is postmenopausal. Cyst aspiration of the right breast. Physical Findings: A clinical breast exam by your physician is recommended on an annual basis and results should be correlated with mammographic findings. MG 3D Screening Mammo W/Cad Bilateral CC and MLO view(s) were taken. Prior study comparison: September 08, 2018, bilateral MG 3d screening mammo w/cad. September 03, 2017, bilateral MG screening mammo w CAD. There are scattered fibroglandular densities. Benign appearing bilateral calcifications. No suspicious abnormality. No significant changes when compared with prior studies. ASSESSMENT: Benign, BI-RAD 2 RECOMMENDATION: Routine screening mammogram of both breasts in 1 year.
== END | disposition home or self-care (01) ==
LOC: RADMAMWWP 07:23
PROVIDERS: ATTEND Internal Medicine Geriatric Medicine
DX: Z12.31 Encounter for screening mammogram for malignant neoplasm of breast (principal); R92.8 Other abnormal and inconclusive findings on diagnostic imaging of breast
CPT/HCPCS: 77063; 77067

== ENCOUNTER → 2020-02-04 | Outpatient (CLI) | payer MEDICARE ==
--- NOTE | 2020-02-04 13:00 | ECHOF ---
Referral Reason:I34.0 Nonrheumatic mitral (valve) insuffic; I65.23 MEASUREMENTS -------- HEIGHT: 165.1 cm WEIGHT: 92.1 kg BP: IVSd: 1.3 cm (0.6 - 1.1) LVIDd: 4.8 cm (3.9 - 5.3) LVPWd: 1.2 cm (0.6 - 1.1) IVSs: 1.6 cm LVIDs: 3.8 cm LVPWs: 1.6 cm LAESV Index (A-L): 17.58 ml/m Ao Diam: 3.2 cm (2.0 - 3.7) AV Cusp: 1.3 cm (1.5 - 2.6) MV EXCURSION: 13.015 mm (> 18.000) MV EF SLOPE: 44 mm/s (70 - 150) EPSS: 1.0 cm MV E Rogelio: 0.52 m/s MV DecT: 240 ms MV A Rogelio: 0.79 m/s MV E/A Ratio: 0.65 RAP: 5.00 mmHg RVSP: 31.46 mmHg FINDINGS -------- Sinus rhythm. This was a technically good study. The left ventricular size is normal. There is mild concentric left ventricular hypertrophy. Overa ll left ventricular systolic function is low-normal with, an EF between 50 - 55 %. The right ventricle is normal in size. The left atrial size is normal. Normal LA size by volume 22+/-6 ml/m2. The right atrial size is normal. Interatrial and interventricular septum intact. There is mild aortic valve sclerosis. There is mild aortic regurgitation. Mild mitral regurgitation is present. Mild tricuspid regurgitation present. Right ventricular systolic pressure is normal at < 35 mmHg. There is no pulmonic regurgitation present. The aortic root size is normal. There is no pericardial effusion. CONCLUSIONS -------- 1. Sinus rhythm. 2. The left ventricular size is normal. 3. There is mild concentric left ventricular hypertrophy. 4. Overall left ventricular systolic function is low-normal with, an EF between 50 - 55 %. 5. The right ventricle is normal in size. 6. The left atrial size is normal. 7. Normal LA size by volume 22+/-6 ml/m2. 8. The right atrial size is normal. 9. There is mild aortic valve sclerosis. 10. There is mild aortic regurgitation. 11. Mild mitral regurgitation is present. 12. Mild tricuspid regurgitation present. 13. Right ventricular systolic pressure is normal at < 35 mmHg. CHAIR POST MACHINE OPERATOR: Suzanna Rodriguez RDCS
--- NOTE | 2020-02-04 15:45 | US ---
EXAMINATION TYPE: US carotid duplex BILAT DATE OF EXAM: 02/04/2020 COMPARISON: NONE CLINICAL HISTORY: I34.0 Nonrheumatic mitral (valve) insufficieny; I65.23. memory loss, no h/o stroke EXAM MEASUREMENTS: RIGHT: Peak Systolic Velocity (PSV) cm/sec ----- Right CCA: 68.6 ----- Right ICA: 58.7 ----- Right ECA: 50.3 ICA/CCA ratio: 0.9 RIGHT: End Diastole cm/sec ----- Right CCA: 14.5 ----- Right ICA: 14.5 ----- Right ECA: 5.4 LEFT: Peak Systolic Velocity (PSV) cm/sec ----- Left CCA: 55.0 ----- Left ICA: 65.8 ----- Left ECA: 52.5 ICA/CCA ratio: 1.2 LEFT: End Diastole cm/sec ----- Left CCA: 10.6 ----- Left ICA: 13.0 ----- Left ECA: 6.1 VERTEBRALS (direction of flow): Right Vertebral: Antegrade Left Vertebral: Antegrade Rhythm: Normal Mild plaque seen within the bilateral carotid bulbs. No significant stenosis seen. IMPRESSION: No hemodynamically significant stenosis of the bilateral carotid arteries. Any stenosis that may be present is less than 50%. Criteria for Assigning % of Stenosis / Diameter reduction (Estimation based on the indirect measurements of the internal carotid artery velocities (ICA PSV). 1. Normal (no stenosis)=ICA PSV < 125 cm/s: ratio < 2.0: ICA EDV<40 cm/s. 2. Less than 50% stenosis=ICA PSV < 125 cm/s: ratio < 2.0: ICA EDV<40 cm/s. 3. 50 to 69% stenosis=ICA PSV of 125 to 230 cm/s: ration 2.0 ? 4.0: ICA EDV 40-100 cm/s. 4. Greater than 70% stenosis to near occlusion= ICA PSV > 230 cm/s: ratio > 4.0: ICA EDV > 100 cm/s. 5. Near occlusion= ICA PSV velocities may be low or undetectable: variable ratio and ICA EDV. 6. Total occlusion=unable to detect flow.
== END | disposition home or self-care (01) ==
LOC: RADECHMAIN 11:56
PROVIDERS: ATTEND Internal Medicine Geriatric Medicine
DX: I65.23 Occlusion and stenosis of bilateral carotid arteries (principal); I08.3 Combined rheumatic disorders of mitral, aortic and tricuspid valves; I34.0 Nonrheumatic mitral (valve) insufficiency
CPT/HCPCS: 93306; 93880

== ENCOUNTER → 2020-05-12 | Outpatient (CLI) | payer MEDICARE ==
[2020-05-12 11:23] LABS: Basophils # (A) 0.1 k/uL (0-0.2); Basophils % (A) 1 %; Eosinophils # (A) 0.1 k/uL (0-0.7); Eosinophils % (A) 1 %; HGB 16.3 gm/dL (11.4-16.0); Lymphocytes # (A) 2.1 k/uL (1.0-4.8); Lymphocytes % (A) 33 %; MCV 97.1 fL (80.0-100.0); Mean Platelet Volume 7.3; Monocytes # (A) 0.4 k/uL (0-1.0); Monocytes % (A) 5 %; Neutrophils # (A) 3.8 k/uL (1.3-7.7); Neutrophils % (A) 59 %; Platelet Count 224 k/uL (150-450); RBC 5.25 m/uL (3.80-5.40); RDW 12.6 % (11.5-15.5); WBC 6.4 k/uL (3.8-10.6)
[2020-05-12 21:52] LABS: African American GFR (CKD) 70.5 (60.0-200.0); Albumin 4.3 g/dL (3.80-4.90); Albumin/Globulin Ratio 1.87 (1.60-3.17); Anion Gap 8.4 mmol/L (4.00-12.00); BUN/Creat Ratio 21.11 Ratio (12.00-20.00); Calcium 9.5 mg/dL (8.7-10.3); Carbon Dioxide 25.6 mmol/L (21.6-31.8); Chol/HDL Ratio 3.44; Globulin 2.3 g/dL (1.6-3.3); LDL Cholesterol,Calculated 124.6 mg/dL (0.0-131.0); Non-African American GFR(CKD) 60.8 (60.0-200.0); Potassium 4.5 mmol/L (3.5-5.5); Total Bilirubin 0.7 mg/dL (0.3-1.2); Total Protein 6.6 g/dL (6.2-8.2); VLDL Calculation 19.4 mg/dL (5.00-40.00)
== END | disposition home or self-care (01) ==
LOC: LABWHC1 08:18
PROVIDERS: ATTEND Nurse Practitioner Acute Care
DX: E55.9 Vitamin D deficiency, unspecified (principal); R41.3 Other amnesia
CPT/HCPCS: 36415; 80053; 80061; 82306; 82607; 83090; 84207; 84439; 84443; 84481; 85025

== ENCOUNTER → 2020-12-01 | Outpatient (CLI) | payer MEDICARE ==
[2020-12-01 23:35] LABS: Basophils # (A) 0.05 X 10*3/uL (0.00-0.10); Basophils % (A) 0.6 %; Eosinophils # (A) 0.07 X 10*3/uL (0.04-0.35); Eosinophils % (A) 0.9 %; HCT 48.1 % (37.2-46.3); HGB 16.1 g/dL (12.0-15.0); Lymphocytes # (A) 3.35 X 10*3/uL (0.90-5.00); Lymphocytes % (A) 41.8 %; MCH 31.4 pg (27.0-32.0); MCHC 33.5 g/dL (32.0-37.0); MCV 93.9 fL (80.0-97.0); Mean Platelet Volume 10.3 fL (9.5-12.2); Monocytes # (A) 0.56 X 10*3/uL (0.20-1.00); Neutrophils # (A) 3.94 X 10*3/uL (1.80-7.70); Neutrophils % (A) 49.2 %; Platelet Count 232 X 10*3/uL (140-440); RBC 5.12 X 10*6/uL (4.10-5.20); RDW 12.4 % (11.5-14.5); WBC 8.01 X 10*3/uL (4.50-10.00)
[2020-12-02 08:40] LABS: African American GFR (CKD) 70.5 (60.0-200.0); Albumin 4.5 g/dL (3.80-4.90); Albumin/Globulin Ratio 1.8 (1.60-3.17); Anion Gap 14.3 mmol/L (4.00-12.00); BUN/Creat Ratio 16.67 Ratio (12.00-20.00); Carbon Dioxide 20.7 mmol/L (21.6-31.8); Chol/HDL Ratio 3.58; Globulin 2.5 g/dL (1.6-3.3); LDL Cholesterol,Calculated 109.4 mg/dL (0.0-131.0); Non-African American GFR(CKD) 60.8 (60.0-200.0); Potassium 4.1 mmol/L (3.5-5.5); Total Bilirubin 0.7 mg/dL (0.3-1.2); VLDL Calculation 24.6 mg/dL (5.00-40.00)
== END | disposition home or self-care (01) ==
LOC: LABWHC1 14:58
PROVIDERS: ATTEND Internal Medicine Geriatric Medicine
DX: E03.9 Hypothyroidism, unspecified (principal); E78.2 Mixed hyperlipidemia; M15.9 Polyosteoarthritis, unspecified; E08.42 Diabetes mellitus due to underlying condition with diabetic polyneuropathy
CPT/HCPCS: 36415; 80053; 80061; 84443; 85025

== ENCOUNTER → 2021-01-13 | Outpatient (CLI) | payer MEDICARE ==
--- NOTE | 2021-01-17 08:49 | MM ---
Reason for exam: screening (asymptomatic). Last mammogram was performed 1 year and 1 month ago. History: Patient is postmenopausal. Cyst aspiration of the right breast. Physical Findings: A clinical breast exam by your physician is recommended on an annual basis and results should be correlated with mammographic findings. MG Screening Mammo w CAD Bilateral CC and MLO view(s) were taken. Prior study comparison: December 11, 2019, bilateral MG 3d screening mammo w/cad. September 08, 2018, bilateral MG 3d screening mammo w/cad. There are scattered fibroglandular densities. ASSESSMENT: Negative, BI-RAD 1 RECOMMENDATION: Routine screening mammogram of both breasts in 1 year.
== END | disposition home or self-care (01) ==
LOC: RADMAMWWP 09:19
PROVIDERS: ATTEND Internal Medicine Geriatric Medicine
DX: Z12.31 Encounter for screening mammogram for malignant neoplasm of breast (principal); Z78.0 Asymptomatic menopausal state
CPT/HCPCS: 77067

== ENCOUNTER → 2021-05-18 | Outpatient (CLI) | payer MEDICARE | END | disposition home or self-care (01) | LOC: LABWHC1 11:22 | PROVIDERS: ATTEND Orthopaedic Surgery | DX: S82.125A Nondisplaced fracture of lateral condyle of left tibia, initial encounter for closed fracture (principal); M17.12 Unilateral primary osteoarthritis, left knee; X58.XXXA Exposure to other specified factors, initial encounter | CPT/HCPCS: 36415; 82306 ==

== ENCOUNTER → 2022-01-23 | Outpatient (CLI) | payer MEDICARE ==
--- NOTE | 2022-01-24 09:19 | MM ---
Reason for Exam: Screening (asymptomatic). Last screening mammogram was performed 12 month(s) ago. Patient History: Menarche at age 12. First Full-Term at age 23. Right ovary removed at age 38. Hysterectomy at age 38. Postmenopausal. Patient used Progesterone for 2 years. Cyst Aspiration on the Right side. Risk Values: Violeta 5 year model risk: 1.4%. NCI Lifetime model risk: 2.1%. Prior Study Comparison: 09/08/2018 Bilateral Screening Mammogram, [facility]. 12/11/2019 Bilateral Screening Mammogram, [facility]. 01/13/2021 Bilateral Screening Mammogram, [facility]. Tissue Density: The breast tissue is heterogeneously dense. This may lower the sensitivity of mammography. Findings: Analyzed By CAD. There is no suspicious group of microcalcifications or new suspicious mass in either breast. Overall Assessment: Benign, BI-RAD 2 Management: Screening Mammogram of both breasts in 1 year. A clinical breast exam by your physician is recommended on an annual basis and results should be correlated with mammographic findings. Electronically signed and approved by: Moreno Randle M.D. Radiologis
== END | disposition home or self-care (01) ==
LOC: RADMAMWWP 11:36
PROVIDERS: ATTEND Internal Medicine Geriatric Medicine
DX: Z12.31 Encounter for screening mammogram for malignant neoplasm of breast (principal); Z78.0 Asymptomatic menopausal state
CPT/HCPCS: 77063; 77067

== ENCOUNTER 2024-01-28 06:42 | Emergency (ER) | payer MEDICARE ==
--- NOTE | 2024-01-28 07:35 | XR ---
EXAMINATION TYPE: XR chest 1V DATE OF EXAM: 01/28/2024 COMPARISON: 12/13/2016 HISTORY: Pain TECHNIQUE: Single frontal view of the chest is obtained. FINDINGS: There is no focal air space opacity, pleural effusion, or pneumothorax seen. The cardiac silhouette size is within normal limits. The osseous structures are intact. Ectasia of the thoracic aorta. Underlying COPD. Diffuse osteopenia. Shoulder arthropathy. Question a deformity of the right humeral neck. IMPRESSION: 1. No acute process. 2. Deformity of the right humeral neck correlate for fracture.
--- NOTE | 2024-01-28 07:36 | XR ---
EXAMINATION TYPE: XR shoulder complete RT DATE OF EXAM: 01/28/2024 COMPARISON: NONE HISTORY: Pain TECHNIQUE: Two views are submitted. FINDINGS: Displaced right humeral neck fracture. Lung ramos clear. Remaining osseous structures intact. Mild A C joint arthropathy. Calcification along the humeral head on the oblique view can be associated with calcific tendinosis of the rotator cuff. IMPRESSION: 1. Displaced right humeral neck fracture.
--- NOTE | 2024-01-28 07:37 | ED ---
General Adult HPI - General Chief complaint: Fall Stated complaint: Fall- right shoulder injury Time Seen by Provider: 01/28/24 07:09 Source: patient, EMS Mode of arrival: EMS Limitations: no limitations - History of Present Illness Initial comments: Dictation was produced using [employer] dictation software. please excuse any grammatical, word or spelling errors. Chief Complaint: 83-year-old female presents with right shoulder pain and neck pain after fall History of Present Illness: Patient is 83-year-old female this morning she woke up going to the bathroom. She was trying to sit on the toilet when she lost her balance fell landing on her right shoulder. Patient states that her right shoulder hurts. She was given fentanyl by EMS. Patient states that she did not hit her head but does have some neck pain. Patient does reportedly take antic oagulation medications per grandson at the bedside states she takes aspirin. The ROS documented in this emergency department record has been reviewed and confirmed by me. Those systems with pertinent positive or negative responses have been documented in the HPI. All other systems are other negative and/or noncontributory. - Related Data Home Medications Medication Instructions Recorded Confirmed Aspirin EC [Ecotrin Low Dose] 81 mg PO HS 12/13/16 01/28/24 Levothyroxine Sodium [Synthroid] 125 mcg PO [id number] 12/13/16 01/28/24 Donepezil [Aricept] 10 mg PO DAILY 01/28/24 01/28/24 Escitalopram [Lexapro] 5 mg PO HS 01/28/24 01/28/24 Levothyroxine Sodium [Synthroid] 75 mcg PO MO 01/28/24 01/28/24 Rosuvastatin Calcium [Crestor] 5 mg PO DAILY 01/28/24 01/28/24 lisinopriL [Zestril] 5 mg PO DAILY 01/28/24 01/28/24 metroNIDAZOLE 0.75% CREAM 1 applic TOPICAL BID 01/28/24 01/28/24 [Metrocream 0.75%] sitaGLIPtin [Januvia] 100 mg PO DAILY 01/28/24 01/28/24 Previous Rx's Medication Instructions Recorded HYDROcodone/APAP 5-325MG [[place] 1 tab PO Q6HR PRN 3 Days #12 tab 01/28/24 5-325] Allergies Allergy/AdvReac Type Severity Reaction Status Date / Time meperidine [From Demerol] AdvReac Nausea & Verified 01/28/24 06:52 Vomiting Review of Systems ROS Statement: Those systems with pertinent positive or pertinent negative responses have been documented in the HPI. ROS Other: All systems not noted in ROS Statement are negative. Past Medical History Past Medical History: Diabetes Mellitus, Osteoarthritis (OA), Thyroid Disorder History of Any Multi-Drug Resistant Organisms: None Reported Past Surgical History: Hysterectomy, Orthopedic Surgery Additional Past Surgical History / Comment(s): Bilateral cateract removal and intraocular lens inplants Past Psychological History: No Psychological Hx Reported Past Alcohol Use History: None Reported Past Drug Use History: None Reported - Past Family History Father Additional Family Medical History / Comment(s): Father at age 47 with history of diabetes and myocardial infarction at age 38. Mother Additional Family Medical History / Comment(s): Mother at age 100 with known cardiomyopathy. Sister(s) Additional Family Medical History / Comment(s): Patient has 3 sisters with no major medical problems. Patient does not have any brothers. Daughter(s) Additional Family Medical History / Comment(s): Patient has 3 daughters no major medical problems. General Exam - General Exam Comments Initial Comments: PHYSICAL EXAM: General Impression: Alert and oriented x3, acute distress secondary to pain, c-collar in place HEENT: Normocephalic atraumatic, extra-ocular movements intact, pupils equal and reactive to light bilaterally, mucous membranes moist. Cardiovascular: Heart regular rate and rhythm Chest: Able to complete full sentences, no retractions, no tachypnea Abdomen: abdomen soft, non-tender, non-distended, no organomegaly Musculoskeletal: Pulses present and equal in all extremities, no peripheral edema Motor: no focal deficits noted Neurological: CN II-XII grossly intact, no focal motor or sensory deficits noted Skin: Intact with no visualized rashes Psych: Normal affect and mood Limitations: no limitations Course Vital Signs 01/28/24 01/28/24 06:44 07:42 Temperature 98.8 F Pulse Rate 56 L 57 L Respiratory 16 18 Rate Blood Pressure 115/54 123/54 O2 Sat by Pulse 99 98 Oximetry - Reevaluation(s) Reevaluation #1: 01/28/24 07:36 Patient offered pain medication on arrival and she refused states that she does not do well with analgesics. EKG Findings - EKG Comments: EKG Findings:: My EKG interpretation: Ventricular rate 60, sinus rhythm,. 180, cures 142, QTc 479. No OR prolongation, no QTC prolongation, no ST or T-wave changes noted. EKG compared to December 13, 2016 showing no changes. Overall, this EKG is unremarkable Procedures - Orthopedic Splinting/Casting Injury #1 Side: right Upper Extremity Injury Location: long arm (coapt splint) Other Orthopedic Equipment: other (sling) Medical Decision Making - Medical Decision Making Was pt. sent in by a medical professional or institution (, PA, MANAGER STUDIO, urgent care, hospital, or group home...) When possible be specific @ -No Did you speak to anyone other than the patient for history (EMS, parent, family, police, friend...)? What history was obtained from this source @ -EMS and grandson at the bedside Did you review nursing and triage notes (agree or disagree)? Why? @ -I reviewed and agree with nursing and triage notes Were old charts reviewed (outside hosp., previous admission, EMS record, old EKG, old radiological studies, urgent care reports/EKG's, group home records)? Report findings @ -No old charts were reviewed Differential Diagnosis (chest pain, altered mental status, abdominal pain women, abdominal pain men, vaginal bleeding, musculoskeletal, weakness, fever, dyspnea, syncope, headache, dizziness, GI bleed, back pain, seizure, CVA, palpatations, mental health)? @ -Head injury, neck fracture, elbow dislocation, shoulder dislocation EKG interpreted by me (3pts min.). @ -See above X-rays interpreted by me (1pt min.). @ -Pelvis x-ray and chest x-ray shows no acute processes. Shoulder x-ray shows right humeral neck fracture. CT interpreted by me (1pt min.). @ -CT scan the brain and C-spine shows no acute processes U/S interpreted by me (1pt. min.). @ -None done What testing was considered but not performed or refused? (CT, X-rays, U/S, labs)? Why? @ -None What meds were considered but not given or refused? Why? @ -None Was smoking cessation discussed for >3mins.? @ -No Were there social determinants of health that impacted care today? How? (Homelessness, low income, unemployed, alcoholism, drug addiction, transportation, low edu. Level, literacy, decrease access to med. care, alf, rehab)? @ -No Was there de-escalation of care discussed even if they declined (Discuss DNR or withdrawal of care, Hospice)? DNR status @ -No What co-morbidities impacted this encounter? (DM, HTN, Smoking, COPD, CAD, Cancer, CVA, ARF, Chemo, Hep., AIDS, mental health diagnosis, sleep apnea, morbid obesity)? @ -None Was patient admitted / discharged? Hospital course, mention meds given and route, prescriptions, significant lab abnormalities, going to OR and other pertinent info. @ -83-year-old female presents emergency department after mechanical fall in her bathroom. She complains of right shoulder pain. Vital signs upon arrival are within acceptable limits. EKG is unremarkable. Labs are unremarkable. X- rays of the pelvis shoulder and chest shows right humeral neck fracture. CT head C-spine shows no acute processes. Patient placed in right upper extremity coapt splint. She is [facility]. Did you discuss the management of the patient with other professionals (professionals i.e. , PA, MANAGER STUDIO, lab, RT, psych nurse, psych social worker, electrical systems design engineer, teacher, forest fire management officer, rn case manager)? Give summary @ -No Was critical care preformed (if so, how long)? @ -No Undiagnosed new problem with uncertain prognosis? @ -No Drug Therapy requiring intensive monitoring for toxicity (Heparin, Nitro, Insulin, Cardizem)? @ -No Were any procedures done? @ -See above Diagnosis/symptom? Acute, or Chronic, or Acute on Chronic? Uncomplicated (without systemic symptoms) or Complicated (systemic symptoms)? @ -Acute humeral neck fracture Side effects of treatment? @ -No Exacerbation, Progression, or Severe Exacerbation? @ -No Poses a threat to life or bodily function? How? (Chest pain, [place], [place], pneumonia, PE, COPD, DKA, ARF, appy, cholecystitis, CVA, Diverticulitis, Homicidal, Suicidal, threat to staff... and all critical care pts) @ -yes - Lab Data Result diagrams: 01/28/24 08:19 07/23/24 07:40 Lab Results 01/28/24 01/28/24 01/28/24 Range/Units 07:40 07:40 08:19 WBC 11.1 H (3.8-10.6) k/uL RBC 4.75 (3.80-5.40) m/uL Hgb 14.9 (11.4-16.0) gm/dL Hct 44.8 (34.0-46.0) % MCV 94.2 (80.0-100.0) fL MCH 31.3 (25.0-35.0) pg MCHC 33.2 (31.0-37.0) g/dL RDW 12.4 (11.5-15.5) % Plt Count 113 L (150-450) k/uL MPV 9.0 Neutrophils % 80 % Lymphocytes % 14 % Monocytes % 5 % Eosinophils % 1 % Basophils % 0 % Neutrophils # 8.8 H (1.3-7.7) k/uL Lymphocytes # 1.6 (1.0-4.8) k/uL Monocytes # 0.6 (0-1.0) k/uL Eosinophils # 0.1 (0-0.7) k/uL Basophils # 0.0 (0-0.2) k/uL PT 10.9 (10.0-12.5) sec INR 1.0 (<1.2) APTT 19.4 L (22.0-30.0) sec Sodium 139 (137-145) mmol/L Potassium 3.9 (3.5-5.1) mmol/L Chloride 109 H (98-107) mmol/L Carbon Dioxide 23 (22-30) mmol/L Anion Gap 7 mmol/L BUN 18 H (7-17) mg/dL Creatinine 0.75 (0.52-1.04) mg/dL Est GFR (CKD-EPI)AfAm 85 (>60 ml/min/1.73 sqM) Est GFR (CKD-EPI)NonAf 74 (>60 ml/min/1.73 sqM) Glucose 208 H (74-99) mg/dL Calcium 9.4 (8.4-10.2) mg/dL Disposition Clinical Impression: Humerus fracture Disposition: HOME SELF-CARE Condition: Fair Instructions (If sedation given, give patient instructions): Fall Prevention for Older Adults (ED), Arm Fracture in Adults (ED) Prescriptions: HYDROcodone/APAP 5-325MG [[place] 5-325] 1 tab PO Q6HR PRN 3 Days #12 tab PRN Reason: Severe Pain Is patient prescribed a controlled substance at d/c from ED?: Yes If prescribed controlled substance>3 days was MAPS reviewed?: Prescribed <3 Days Referrals: Michele Mckoy MD [Primary Care Provider] - 1-2 days Sylvain Head MD [STAFF PHYSICIAN] - 1-2 days Time of Disposition: 10:08
[2024-01-28 07:45] VITALS: RESP 18
[2024-01-28] MEDS: MORPHINE SULFATE 4 MG/ML SYRINGE IV STA (08:15)
[2024-01-28 08:17] LABS: Prothrombin Time 10.9 sec (10.0-12.5)
--- NOTE | 2024-01-28 08:20 | XR ---
EXAMINATION TYPE: XR pelvis AP view DATE OF EXAM: 01/28/2024 COMPARISON: NONE HISTORY: Pain The osseous structures are intact and the joint spaces are preserved. No acute fracture is seen. Vi sualized bowel gas pattern is nonspecific. Diffuse osteopenia. There is osteitis symphysis pubis. Bi lateral hip arthropathy. Scoliosis and degenerative changes of the spine. Hypertrophic arthropathy of the SI joint. Soft tissue calcifications. IMPRESSION: 1. No acute fracture.
--- NOTE | 2024-01-28 08:29 | CT ---
EXAMINATION TYPE: CT brain yaron lilly DATE OF EXAM: 01/28/2024 COMPARISON: 12/13/2016 HISTORY: Fall, pain CT DLP: 1530.2 mGycm Automated exposure control for dose reduction was used. TECHNIQUE: CT scan of the head and cervical spine are performed without contrast. FINDINGS: There is no acute intracranial hemorrhage, mass effect, or midline shift identified. Hypo attenuation in the white matter most typical remote microvascular ischemia. [id number] degenera tive change.. The globes are intact and the visualized sinuses are clear. Assessment the spinal canal limited due to artifact and resolution. There is multilevel moderate to s evere degenerative disc disease most marked at C5-6 and C6-C7. There is grade 1 anterior listhesis C3 -C4 and C4-C5. Multilevel facet arthropathy and foraminal encroachment. Suspect canal stenosis at C5- 6 and C6-C7. No acute fracture.. Fusion of the left facet of C3 to and C3 IMPRESSION: 1. There is no acute fracture or dislocation evident in the cervical spine. The level moderate to sev ere degenerative disc disease with suspected foraminal encroachment and canal stenosis. Recommend fol low-up MRI 2. No acute intracranial hemorrhage, mass effect, or midline shift is seen.
[2024-01-28 08:30] LABS: Basophils % (A) 0 %; Eosinophils # (A) 0.1 k/uL (0-0.7); Eosinophils % (A) 1 %; HCT 44.8 % (34.0-46.0); HGB 14.9 gm/dL (11.4-16.0); Lymphocytes # (A) 1.6 k/uL (1.0-4.8); Lymphocytes % (A) 14 %; MCH 31.3 pg (25.0-35.0); MCHC 33.2 g/dL (31.0-37.0); MCV 94.2 fL (80.0-100.0); Monocytes # (A) 0.6 k/uL (0-1.0); Monocytes % (A) 5 %; Neutrophils # (A) 8.8 k/uL (1.3-7.7); Neutrophils % (A) 80 %; Platelet Count 113 k/uL (150-450); RBC 4.75 m/uL (3.80-5.40); RDW 12.4 % (11.5-15.5); WBC 11.1 k/uL (3.8-10.6)
[2024-01-28 08:33] LABS: Partial Thromboplastin Time 19.4 sec (22.0-30.0)
[2024-01-28 08:45] LABS: African American GFR (CKD) 85 (>60 ml/min/1.73 sqM); Anion Gap 7 mmol/L; Blood Urea Nitrogen 18 mg/dL (7-17); Calcium 9.4 mg/dL (8.4-10.2); Carbon Dioxide 23 mmol/L (22-30); Chloride 109 mmol/L (98-107); Glucose 208 mg/dL (74-99); Non-African American GFR(CKD) 74 (>60 ml/min/1.73 sqM); Potassium 3.9 mmol/L (3.5-5.1); Sodium 139 mmol/L (137-145)
[2024-01-28 10:15] VITALS: BP 100/43; PULSE 53; TEMP 97.7
== END 2024-01-28 10:27 | disposition home or self-care (01) ==
LOC: EC 06:42
DX: S42.211A Unspecified displaced fracture of surgical neck of right humerus, initial encounter for closed fracture (principal); Z88.5 Allergy status to narcotic agent; W01.0XXA Fall on same level from slipping, tripping and stumbling without subsequent striking against object, initial encounter; Y92.002 Bathroom of unspecified non-institutional (private) residence as the place of occurrence of the external cause
CPT/HCPCS: 99284; 96374; 36415; 93005; 80048; 85025; 85610; 85730; 72170; 73030; 71045; 72125; 70450; J2270

== ENCOUNTER → 2024-06-16 | Outpatient (CLI) | payer MEDICARE ==
--- NOTE | 2024-06-20 00:14 | BD ---
EXAMINATION TYPE: Axial Bone Density DATE OF EXAM: 06/16/2024 CLINICAL HISTORY: 83 years old Female. ICD-10 CODE: M81.0 Osteopenia , Additional History: Height: 65 Weight: 172.1 FRAX RISK QUESTIONS: Alcohol (3 or more units per day): no Family History (Parent hip fracture): no Glucocorticoids (More than 3mos): no (Ex: prednisone, prednisolone, methylprednisolone, dexamethasone, and hydrocortisone). History of Fracture in Adulthood: yes Secondary Osteoporosis: 1. Type 1 Diabetes: no 2. Hyperthyroidism: no 3. Menopause before 45: yes 4. Malnutrition: no 5. Chronic liver disease: no Rheumatoid Arthritis: no Current Tobacco Use: no RISK FACTORS HISTORY OF: History of Wrist Fracture: right When: 2017 Surgery to Spine/Hip(right/left)/Wrist (right/left): no MEDICATIONS: Thyroid Medications: levothyroxine EXAM MEASUREMENTS: Bone mineral densitometry was performed using the [employer] System. Bone mineral density as measured about the Lumbar spine is: ----- L1-L4(G/cm2): 1.105 T Score Values are as follows: ----- L1: -1.8 ----- L2: -1.2 ----- L3: 0.6 ----- L4: -0.4 ----- L1-L4: -0.6 Z Score Values are as follows: ----- L1: -0.4 ----- L2: 0.3 ----- L3: 2.1 ----- L4: 1.1 ----- L1-L4: 0.8 Bone mineral density has: decreased -2.2 % since study of: 2019 Bone mineral density about the R hip (g/cm2): [id number] Bone mineral density about the L hip (g/cm2): T Score values are as follows: -----R Neck: -2.4 -----L Neck: -2.8 -----R Total: -2.1 -----L Total: -1.7 Z Score values are as follows: -----R Neck: -0.3 -----L Neck: -0.8 -----R Total: -0.2 -----L Total: 0.2 Bone mineral density has: decreased -7.5 % since study of: 2019 FRAX%s: The graph provided illustrates a 41.8% chance for a major osteoporotic fx and a 31.4% chance for the hips probability for fx in 10 years time. IMPRESSION: Osteoporosis (T Score less than -2.5). There is increased fracture risk and therapy is usually indicated based on age. Re-Screen 1-2 years. NOTE: T-SCORE=SD OF THE YOUNG ADULT MEAN. [facility], , 06/20/2024 12:12 AM
--- NOTE | 2024-06-21 03:22 | MM ---
Reason for Exam: Screening (asymptomatic). Last mammogram was performed 2 year(s) and 5 month(s) ago. Patient History: Menarche at age 12. First Full-Term at age 23. Right ovary removed at age 38. Hysterectomy at age 38. Postmenopausal. Patient has history of breast feeding. Patient used Progesterone for 2 years. Cyst Aspiration on the Right side. Niece had breast cancer at or over age 50. Risk Values: Violeta 5 year model risk: 1.3%. NCI Lifetime model risk: 1.7%. Prior Study Comparison: 12/11/2019 Bilateral Screening Mammogram, [facility]. 01/13/2021 Bilateral Screening Mammogram, [facility]. 01/23/2022 Bilateral MG 3D screening mammo w/cad, [facility]. Tissue Density: There are scattered areas of fibroglandular density. Findings: Analyzed By CAD. The pattern is symmetrical. Benign vascular calcifications present bilaterally. No significant interval change is evident. Benign calcifications within the bilateral breasts. No suspicious groups of microcalcifications, spiculated or lobular masses, architectural distortion or other secondary signs of malignancy are mammographically apparent. Overall Assessment: Benign, BI-RAD 2 Management: Screening Mammogram of both breasts in 1 year. A negative mammogram report should not preclude additional follow up of suspicious palpable abnormalities. Patient should continue monthly self breast exam. A clinical breast exam by your physician is recommended on an annual basis and results should be correlated with mammographic findings. Note on Violeta scores and lifetime risk: 1. A Violeta score greater than 3% is considered moderate risk. If this is the case, consider specialist referral to assess eligibility for a risk reducing agent. 2. If overall lifetime risk for the development of breast cancer is 20% or higher, the patient may qualify for future screening with alternating mammogram and breast MRI. [facility], , 06/21/2024 3:19 AM. Electronically signed and approved by: Inderjit Reed D.O. Radiologis
== END | disposition home or self-care (01) ==
LOC: RADMAMWWP 13:40
PROVIDERS: ATTEND Internal Medicine Geriatric Medicine
DX: Z12.31 Encounter for screening mammogram for malignant neoplasm of breast (principal); R92.323 Mammographic fibroglandular density, bilateral breasts; M81.0 Age-related osteoporosis without current pathological fracture; Z78.0 Asymptomatic menopausal state; Z90.722 Acquired absence of ovaries, bilateral
CPT/HCPCS: 77063; 77067; 77080

== ENCOUNTER → 2024-10-26 | Outpatient (CLI) | payer MEDICARE ==
--- NOTE | 2024-10-26 14:52 | XR ---
EXAMINATION TYPE: XR knee complete LT DATE OF EXAM: 10/26/2024 2:47 PM INDICATION: Patient age:Female; 83 years old; Reason for study: M25.562 PAIN IN LEFT KNEE; PHH. pain COMPARISON: Bilateral knee radiograph 12/13/2016 TECHNIQUE: The Left knee(s) was examined in Frontal, lateral and oblique projections. FINDINGS: No evidence of any acute osseous pathology, soft tissue swelling, or joint effusion is no juhi. Tricompartmental joint space narrowing with marginal osteophytosis. Most pronounced involving th e medial tibiofemoral joint space. Vascular sclerosis. IMPRESSION: 1. No acute osseous pathology. 2. Moderate tricompartmental osteoarthritic changes. Most pronounced involving the medial tibiofemora l joint space. This has progressed from prior radiograph. [facility], , 10/26/2024 2:50 PM
== END | disposition home or self-care (01) ==
LOC: RADXRWHC 14:28
PROVIDERS: ATTEND Internal Medicine Geriatric Medicine
DX: M17.12 Unilateral primary osteoarthritis, left knee (principal)

== ENCOUNTER 2024-12-12 14:27 | Emergency (ER) | payer MEDICARE ==
[2024-12-12 14:46] LABS: Glucose,Whole Blood 176 mg/dL (70-110)
[2024-12-12] MEDS: SODIUM CHLORIDE 0.9% 500 ML 500 ML IV STA (14:47)
[2024-12-12] MEDS: ONDANSETRON 4 MG/2 ML VIAL IVP STA (14:47)
[2024-12-12 14:49] LABS: Basophils # (A) 0.05 10*3/uL (0.00-0.10); Basophils % (A) 0.7 %; Eosinophils # (A) 0.06 10*3/uL (0.04-0.35); Eosinophils % (A) 0.8 %; HCT 43.1 % (37.2-46.3); HGB 14.9 g/dL (12.0-15.0); Lymphocytes # (A) 2.81 10*3/uL (0.90-5.00); Lymphocytes % (A) 38.3 %; MCH 31.6 pg (27.0-32.0); MCHC 34.6 g/dL (32.0-37.0); MCV 91.5 fL (80.0-97.0); Mean Platelet Volume 9.7 fL (9.5-12.2); Monocytes # (A) 0.48 10*3/uL (0.20-1.00); Monocytes % (A) 6.5 %; Neutrophils # (A) 3.93 10*3/uL (1.80-7.70); Neutrophils % (A) 53.6 %; Platelet Count 148 10*3/uL (140-440); RBC 4.71 10*6/uL (4.10-5.20); RDW 12.4 % (11.5-14.5); WBC 7.34 10*3/uL (4.50-10.00)
--- NOTE | 2024-12-12 14:55 | ED ---
Dizziness HPI - General Chief Complaint: Dizziness Stated Complaint: near syncope Time Seen by Provider: 12/12/24 14:30 Source: patient, family, EMS, RN notes reviewed Mode of arrival: EMS Limitations: no limitations - History of Present Illness Initial Comments: This is an 84-year-old female who presents to the emergency department for dizziness and a near syncopal episode. Patient [place] around [place] when she suddenly started to feel dizzy and felt like she could pass out. States that she had to sit down and she felt like she could not see for a few minutes. She had nausea associated with this. Denies any chest pain or shortness of breath. Dizziness has since subsided. She would not describe it as a room spinning sensation. She has had dizziness in the past, but nothing to this severity. MD Complaint: dizziness, lightheadedness, near syncope - Related Data Home Medications Medication Instructions Recorded Confirmed Aspirin EC [Ecotrin Low Dose] 81 mg PO HS 12/13/16 01/28/24 Levothyroxine Sodium [Synthroid] 125 mcg PO SUTUWETHFRSA 12/13/16 01/28/24 Donepezil [Aricept] 10 mg PO DAILY 01/28/24 01/28/24 Escitalopram [Lexapro] 5 mg PO HS 01/28/24 01/28/24 Levothyroxine Sodium [Synthroid] 75 mcg PO MO 01/28/24 01/28/24 Rosuvastatin Calcium [Crestor] 5 mg PO DAILY 01/28/24 01/28/24 lisinopriL [Zestril] 5 mg PO DAILY 01/28/24 01/28/24 metroNIDAZOLE 0.75% CREAM 1 applic TOPICAL BID 01/28/24 01/28/24 [Metrocream 0.75%] sitaGLIPtin [Januvia] 100 mg PO DAILY 01/28/24 01/28/24 Previous Rx's Medication Instructions Recorded HYDROcodone/APAP 5-325MG [[place] 1 tab PO Q6HR PRN 3 Days #12 tab 01/28/24 5-325] Meclizine HCl [Dramamine] 25 mg PO QID PRN #20 tab 12/12/24 cefuroxime axetiL [Ceftin] 500 mg PO BID 7 Days #14 tab 12/12/24 Allergies Allergy/AdvReac Type Severity Reaction Status Date / Time meperidine [From Demerol] AdvReac Nausea & Verified 01/28/24 06:52 Vomiting Review of Systems ROS Statement: Those systems with pertinent positive or pertinent negative responses have been documented in the HPI. ROS Other: All systems not noted in ROS Statement are negative. Past Medical History Past Medical History: Diabetes Mellitus, Osteoarthritis (OA), Thyroid Disorder History of Any Multi-Drug Resistant Organisms: None Reported Past Surgical History: Hysterectomy, Orthopedic Surgery Additional Past Surgical History / Comment(s): Bilateral cateract removal and intraocular lens inplants Past Psychological History: No Psychological Hx Reported Past Alcohol Use History: None Reported Past Drug Use History: None Reported - Past Family History Father Additional Family Medical History / Comment(s): Father at age 47 with histo ry of diabetes and myocardial infarction at age 38. Mother Additional Family Medical History / Comment(s): Mother at age 100 with known cardiomyopathy. Sister(s) Additional Family Medical History / Comment(s): Patient has 3 sisters with no major medical problems. Patient does not have any brothers. Daughter(s) Additional Family Medical History / Comment(s): Patient has 3 daughters no major medical problems. General Exam Limitations: no limitations General appearance: alert, in no apparent distress Head exam: Present: atraumatic, normocephalic, normal inspection Eye exam: Present: normal appearance, PERRL, EOMI. Absent: scleral icterus, conjunctival injection, periorbital swelling Respiratory exam: Present: normal lung sounds bilaterally. Absent: respiratory distress, wheezes, rales, rhonchi, stridor Cardiovascular Exam: Present: regular rate, normal rhythm Neurological exam: Present: alert, oriented X3, CN II-XII intact Psychiatric exam: Present: normal affect, normal mood Skin exam: Present: warm, dry, intact, normal color. Absent: rash Course Vital Signs 12/12/24 12/12/24 14:31 16:56 Temperature 97 F L 98.1 F Pulse Rate 68 64 Respiratory 16 18 Rate Blood Pressure 132/56 139/65 O2 Sat by Pulse 100 97 Oximetry Medical Decision Making - Medical Decision Making This is an 84 year old female who presents to the emergency department for dizziness. Was pt. sent in by a medical professional or institution? @ -No Did you speak to anyone other than the patient for history? @ -Her daughter provided the majority of the history. Did you review nursing and triage notes? @ -Yes, and I agree, it is accurate with regards to the patient's symptoms. Were old charts reviewed? @ -No Differential Diagnosis? @ -Differential Dizziness: Benign paroxysmal positional Vertigo, Meniere's disease, otitis media, acoustic neuroma, vertebrobasilar insufficiency, cerebellar stroke, encephalitis, hy povolemic, arrhythmia, coronary artery syndrome, anemia, this is not meant to be an all-inclusive list EKG interpreted by me (3pts min.)? @ -EKG interpreted by me demonstrating the following: Sinus rhythm. Ventricular rate 68 bpm, DE interval 194 ms, QRS duration 134 ms, QTc 479 ms. X-rays interpreted by me (1pt min.)? @ -Chest x-ray obtained, my interpretation identifies no localized consolidations or infiltrates. CT interpreted by me (1pt min.)? @ -CT scan of the brain obtained. My interpretation identifies no acute intracranial hemorrhage. CTA of the head and neck obtained. My interpretation identifies no evidence of an aneurysm. U/S interpreted by me (1pt. min.)? @ -Not obtained What testing was considered but not performed? (CT, X-rays, U/S, labs)? Why? @ -None What meds were considered but not given? Why? @ -None Did you discuss the management of the patient with other professionals? @ -No Did you reconcile home meds? @ -No Was smoking cessation discussed for >3mins.? @ -No Was critical care preformed (if so, how long)? @ -No Were there social determinants of health that impacted care today? How? (Ho melessness, low income, unemployed, alcoholism, drug addiction, transportation, low edu. Level, literacy, decrease access to med. care, [facility], rehab)? @ -No Was there de-escalation of care discussed even if they declined? (Discuss DNR or withdrawal of care, Hospice)? @ -No What co-morbidities impacted this encounter? (DM, HTN, Smoking, COPD, CAD, Cancer, CVA, Hep., AIDS, mental health diagnosis, sleep apnea, morbid obesity)? @ -DM Was patient admitted / discharged? @ -Discharged. Lab work unremarkable. Urinalysis consistent with infection and urine sent for culture. Chest x-ray reveals no acute process. CT scan of the brain and CTA of the head and neck revealed no acute findings. She had mild nausea but was otherwise asymptomatic in the emergency department. She was treated with a 500 mL bolus of IV fluids and Zofran. She was able to ambulate around without any difficulty or return of symptoms. Given that symptoms have resolved and workup was otherwise unremarkable, advised that she could be discharged home. Patient was in agreement with this plan. She was given 1 g of ceftriaxone in the emergency department and a prescription for cefuroxime was provided for the UTI. Meclizine prescribed as well in the event she has any additional dizziness to see if that helps with symptoms. Patient discharged home in stable condition with strict return parameters and advised to have close follow-up with her PCP. Case discussed with ED attending Dr. Chi. Return precautions reviewed in depth, the patient is instructed to return to the emergency department with any new, worsening, or concerning symptoms. Patient verbalized understanding. Undiagnosed new problem with uncertain prognosis? @ -None Drug Therapy requiring intensive monitoring for toxicity (Heparin, Nitro, Insulin, Cardizem)? @ -None Were any procedures done? @ -None Diagnosis/symptom? @ -Dizziness, near syncope, UTI Acute, or Chronic, or Acute on Chronic? @ -Acute Uncomplicated (without systemic symptoms) or Complicated (systemic symptoms)? @ -Uncomplicated Side effects of treatment? @ -None Exacerbation, Progression, or Severe Exacerbation] @ -Not applicable Poses a threat to life or bodily function? @ -Unlikely - Lab Data Result diagrams: 12/12/24 14:44 12/12/24 14:44 Lab Results 12/12/24 12/12/24 12/12/24 Range/Units 14:41 14:44 14:44 WBC 7.34 (4.50-10.00) 10*3/uL RBC 4.71 (4.10-5.20) 10*6/uL Hgb 14.9 (12.0-15.0) g/dL Hct 43.1 (37.2-46.3) % MCV 91.5 (80.0-97.0) fL MCH 31.6 (27.0-32.0) pg MCHC 34.6 (32.0-37.0) g/dL Plt Count 148 (140-440) 10*3/uL MPV 9.7 (9.5-12.2) fL Immature Gran % (Auto) 0.1 % Neutrophils % 53.6 % Lymphocytes % 38.3 % Monocytes % 6.5 % Eosinophils % 0.8 % Basophils % 0.7 % Immature Gran # 0.01 (0.00-0.04) 10*3/uL Neutrophils # 3.93 (1.80-7.70) 10*3/uL Lymphocytes # 2.81 (0.90-5.00) 10*3/uL Monocytes # 0.48 (0.20-1.00) 10*3/uL Eosinophils # 0.06 (0.04-0.35) 10*3/uL Basophils # 0.05 (0.00-0.10) 10*3/uL PT 12.0 (10.0-12.5) sec INR 1.1 (<1.2) Sodium (137-145) mmol/L Potassium (3.5-5.1) mmol/L Chloride (98-107) mmol/L Carbon Dioxide (22-30) mmol/L Anion Gap mmol/L BUN (7-17) mg/dL Creatinine (0.52-1.04) mg/dL Est GFR (CKD-EPI)AfAm (>60 ml/min/1.73 sqM) Est GFR (CKD-EPI)NonAf (>60 ml/min/1.73 sqM) Glucose (74-99) mg/dL POC Glucose (mg/dL) 176 H (70-110) mg/dL POC Glu Anesthesia Attending ID [place] Calcium (8.4-10.2) mg/dL Magnesium (1.6-2.3) mg/dL Total Bilirubin (0.2-1.3) mg/dL AST (14-36) U/L ALT (4-34) U/L Alkaline Phosphatase (38-126) U/L Troponin I (0.000-0.034) ng/mL Total Protein (6.3-8.2) g/dL Albumin (3.5-5.0) g/dL Urine Color Urine Appearance (Clear) Urine pH (5.0-8.0) Ur Specific [place] (1.001-1.035) Urine Protein (Negative) Urine Glucose (UA) (Negative) Urine Ketones (Negative) Urine Blood (Negative) Urine Nitrite (Negative) Urine Bilirubin (Negative) Urine Urobilinogen (<2.0) mg/dL Ur Leukocyte Esterase (Negative) Urine RBC (0-5) /hpf Urine WBC (0-5) /hpf Ur Squamous Epith Cells (0-4) /hpf Urine Bacteria (None) /hpf Urine Mucus (None) /hpf 12/12/24 12/12/24 12/12/24 Range/Units 14:44 14:44 16:25 WBC (4.50-10.00) 10*3/uL RBC (4.10-5.20) 10*6/uL Hgb (12.0-15.0) g/dL Hct (37.2-46.3) % MCV (80.0-97.0) fL MCH (27.0-32.0) pg MCHC (32.0-37.0) g/dL Plt Count (140-440) 10*3/uL MPV (9.5-12.2) fL Immature Gran % (Auto) % Neutrophils % % Lymphocytes % % Monocytes % % Eosinophils % % Basophils % % Immature Gran # (0.00-0.04) 10*3/uL Neutrophils # (1.80-7.70) 10*3/uL Lymphocytes # (0.90-5.00) 10*3/uL Monocytes # (0.20-1.00) 10*3/uL Eosinophils # (0.04-0.35) 10*3/uL Basophils # (0.00-0.10) 10*3/uL PT (10.0-12.5) sec INR (<1.2) Sodium 135 L (137-145) mmol/L Potassium 4.5 (3.5-5.1) mmol/L Chloride 106 (98-107) mmol/L Carbon Dioxide 19 L (22-30) mmol/L Anion Gap 10 mmol/L BUN 21 H (7-17) mg/dL Creatinine 0.70 (0.52-1.04) mg/dL Est GFR (CKD-EPI)AfAm >90 (>60 ml/min/1.73 sqM) Est GFR (CKD-EPI)NonAf 80 (>60 ml/min/1.73 sqM) Glucose 201 H (74-99) mg/dL POC Glucose (mg/dL) (70-110) mg/dL POC Glu Anesthesia Attending ID Calcium 9.8 (8.4-10.2) mg/dL Magnesium 1.9 (1.6-2.3) mg/dL Total Bilirubin 0.8 (0.2-1.3) mg/dL AST 32 (14-36) U/L ALT 24 (4-34) U/L Alkaline Phosphatase 84 (38-126) U/L Troponin I <0.012 (0.000-0.034) ng/mL Total Protein 6.4 (6.3-8.2) g/dL Albumin 3.7 (3.5-5.0) g/dL Urine Color Light Yellow Urine Appearance Cloudy H (Clear) Urine pH 5.5 (5.0-8.0) Ur Specific [place] 1.041 H (1.001-1.035) Urine Protein Negative (Negative) Urine Glucose (UA) 4+ H (Negative) Urine Ketones Negative (Negative) Urine Blood Negative (Negative) Urine Nitrite Negative (Negative) Urine Bilirubin Negative (Negative) Urine Urobilinogen <2.0 (<2.0) mg/dL Ur Leukocyte Esterase Moderate H (Negative) Urine RBC 3 (0-5) /hpf Urine WBC 70 H (0-5) /hpf Ur Squamous Epith Cells <1 (0-4) /hpf Urine Bacteria Many H (None) /hpf Urine Mucus Rare H (None) /hpf - Radiology Data Radiology results: report reviewed, image reviewed Disposition Clinical Impression: Dizziness, Near syncope, UTI (urinary tract infection) Disposition: HOME SELF-CARE Instructions (If sedation given, give patient instructions): Urinary Tract Infection in Women (ED), Dizziness (ED) Additional Instructions: Return to the emergency department with any new, worsening, or concerning symptoms. Take the antibiotic as prescribed for 7 days. If you start feeling dizzy again you can try taking the meclizine to see if that helps. Follow up with your primary care provider in 1-2 days. Prescriptions: cefuroxime axetiL [Ceftin] 500 mg PO BID 7 Days #14 tab Meclizine HCl [Dramamine] 25 mg PO QID PRN #20 tab PRN Reason: Vertigo Is patient prescribed a controlled substance at d/c from ED?: No Referrals: Michele Mckoy MD [Primary Care Provider] - 1-2 days Time of Disposition: 16:48
[2024-12-12 14:58] LABS: INR 1.1 (<1.2)
[2024-12-12 15:00] LABS: ALT 24 U/L (4-34); AST 32 U/L (14-36); African American GFR (CKD) >90 (>60 ml/min/1.73 sqM); Albumin 3.7 g/dL (3.5-5.0); Alkaline Phosphatase 84 U/L (38-126); Anion Gap 10 mmol/L; Blood Urea Nitrogen 21 mg/dL (7-17); Calcium 9.8 mg/dL (8.4-10.2); Carbon Dioxide 19 mmol/L (22-30); Chloride 106 mmol/L (98-107); Glucose 201 mg/dL (74-99); Magnesium 1.9 mg/dL (1.6-2.3); Non-African American GFR(CKD) 80 (>60 ml/min/1.73 sqM); Potassium 4.5 mmol/L (3.5-5.1); Sodium 135 mmol/L (137-145); Total Bilirubin 0.8 mg/dL (0.2-1.3); Total Protein 6.4 g/dL (6.3-8.2)
--- NOTE | 2024-12-12 15:45 | XR ---
EXAMINATION TYPE: XR chest 2V DATE OF EXAM: 12/12/2024 3:07 PM CLINICAL INDICATION:Female, 84 years old with history of Dizziness; PHH COMPARISON: Chest radiographs 01/28/2024 TECHNIQUE: XR chest 2V Frontal view of the chest. FINDINGS: Lungs/Pleura: Prominence of the interstitial markings likely chronic in nature. There is no evidence of pleural effusion, focal consolidation, or pneumothorax. Pulmonary vascularity: Unremarkable. Heart/mediastinum: Cardiomediastinal silhouette is unremarkable. Musculoskeletal: No acute osseous pathology. IMPRESSION: No acute cardiopulmonary disease/process. [facility], , 12/12/2024 3:43 PM
--- NOTE | 2024-12-12 15:49 | CT ---
EXAMINATION TYPE: CT brain wo con CT DLP: Combined 1598.9 mGycm, Automated exposure control for dose reduction was used. DATE OF EXAM: 12/12/2024 3:41 PM COMPARISON: CT head 01/28/2024. CLINICAL INDICATION:Female, 84 years old with history of Dizziness, near syncope, Sudden onset dizzin ess, history of DM. TECHNIQUE: Brain: Axial CT images of the brain were obtained with coronal and sagittal reformats created and rev iewed. Contrast used: None. Oral contrast used: None. FINDINGS: Brain: Extra-axial spaces: No abnormal extra-axial fluid collections. Ventricular system: Dilatation in proportion to cerebral atrophy. Cerebral parenchyma: Cerebral atrophy. No acute intraparenchymal hemorrhage or mass effect. The pena -white junction is well differentiated. Scattered hypoattenuating areas are seen within the white mat ter. Cerebellum: Unremarkable. Mass effect: No evidence of midline shift. Intracranial vasculature: Atherosclerotic calcifications of the intracranial vessels. Soft tissues: Normal. Calvarium/osseous structures: No acute depressed skull fracture. Paranasal sinuses and mastoid air cells: Mild scattered paranasal sinus disease. Visualized orbits: Bilateral aphakia IMPRESSION: 1. No acute intracranial process. 2. Nonspecific white matter changes, likely secondary to chronic small vessel ischemic disease. [facility], , 12/12/2024 3:47 PM
--- NOTE | 2024-12-12 16:32 | CT ---
EXAMINATION TYPE: CT angio head neck CT DLP: Combined 1598.9 mGycm, Automated exposure control for dose reduction was used. DATE OF EXAM: 12/12/2024 3:53 PM COMPARISON: CT head from the same day. CLINICAL INDICATION:Female, 84 years old with history of Dizziness, near syncope; PHH, Sudden onset d izziness, history of DM. TECHNIQUE: Axially acquired helical CT angiogram of the head and neck was obtained with contrast. Axi al images are supplemented with 3D reconstructions and MIP images which were post-processed at an in dependent workstation. NASCET criteria used. Contrast used:65 mL of Isovue 370 without and with IV Contrast, Oral contrast used: None. FINDINGS: CTA HEAD: Please see the noncontrasted CT head from the same day for further intracranial details. The visualized portions of the internal carotid arteries, middle cerebral arteries, anterior cerebral arteries, and posterior cerebral arteries are patent. There is right posterior circulation pre sent. The left posterior communicating artery is patent. The basilar and vertebral arteries are patent. CTA NECK: Right Carotid System: The common carotid artery and external carotid artery are patent. The carotid bifurcation demonstrate s mild atherosclerosis with no evidence of hemodynamically significant stenosis. The remaining portio ns of the internal carotid artery demonstrate normal size without significant narrowing. Advanced ath erosclerotic changes are seen in the cavernous and supraclinoid portions. Left Carotid System: The common carotid artery and external carotid artery are patent. The carotid bifurcation demonstrate s mild atherosclerosis with no evidence of hemodynamically significant stenosis. The remaining portio ns of the internal carotid artery demonstrate normal size without significant narrowing. Advanced ath erosclerotic changes are seen in the cavernous and supraclinoid portions Vertebral arteries are patent without evidence hemodynamically significant stenosis. The origins of the great vessels are patent. No evidence of hemodynamically significant stenosis. Upper thorax: There is a subtle compression deformity suggested in the superior endplate of T4 vertebral body which is only partially visualized. Degenerative changes are seen in the lower cervical and upper thoracic spine with no acute abnormalit y. Multiple nonenlarged lymph nodes are seen scattered throughout the mediastinum. IMPRESSION: 1. No evidence of dissection of the cervical internal carotid arteries or vertebral arteries or any e vidence of significant stenosis at the carotid bifurcations. 2. No evidence of intracranial high-grade stenosis or intracranial aneurysm. 3. Partial visualization of a subtle compression deformity involving the superior endplate of T4 vert ebral body. This may represent a Schmorl node with degenerative changes however correlation with poin t tenderness and any history of trauma is recommended. If clinical concerns for ischemia persist please consider MRI brain for further characterization. [facility], , 12/12/2024 4:29 PM
[2024-12-12 16:35] LABS: Appearance,Urine Cloudy (Clear); Bacteria,Urine Many /hpf; Bilirubin,Urine Negative (Negative); Blood,Urine Negative (Negative); Color,Urine Light Yellow; Glucose,Urine (UA) 4+ (Negative); Ketones,Urine Negative (Negative); Leukocyte Esterase,Urine Moderate (Negative); Mucus,Urine Rare /hpf; Nitrite,Urine Negative (Negative); PH, Urine 5.5 (5.0-8.0); Protein,Urine Negative (Negative); RBC,Urine 3 /hpf (0-5); Specific Gravity,Urine 1.041 (1.001-1.035); Squamous Epithelial Cell,Urine <1 /hpf (0-4); Urobilinogen,Urine <2.0 mg/dL (<2.0); WBC,Urine 70 /hpf (0-5)
[2024-12-12] MEDS: ONDANSETRON 4 MG ODT STARTER PACK 2 TAB BTL PO STA (16:54)
[2024-12-12] MEDS: cefTRIAXone IN SWFI 1,000 MG/10 ML SYRINGE IVP STA (16:54)
[2024-12-12 16:58] VITALS: BP 139/65; PULSE 64; RESP 18; TEMP 98.1
== END 2024-12-12 17:01 | disposition home or self-care (01) ==
LOC: EC 14:27
DX: N39.0 Urinary tract infection, site not specified (principal); R55 Syncope and collapse; R42 Dizziness and giddiness; E11.9 Type 2 diabetes mellitus without complications; Z88.5 Allergy status to narcotic agent
CPT/HCPCS: 36415; 93005; 80053; 83735; 84484; 85025; 85610; 81001; 87086; 87077; 87186; 71046; 70496; 70450; 70498; 99285; 96374; 96375; J2405; J0696; S0119; Q9967

== ENCOUNTER 2024-12-23 11:10 | Observation (INO) | payer MEDICARE ==
[2024-12-23 11:16] VITALS: TEMP 98.4
--- NOTE | 2024-12-23 12:41 | XR ---
EXAMINATION TYPE: XR chest 2V DATE OF EXAM: 12/23/2024 12:30 PM COMPARISON: 12/12/2024 CLINICAL INDICATION: Female, 84 years old with history of syncope, TECHNIQUE: XR chest 2V view(s) obtained. FINDINGS: The heart size is normal. The pulmonary vasculature is normal. The lungs are clear. IMPRESSION: 1. No acute pulmonary process. [facility], , 12/23/2024 12:38 PM
[2024-12-23] MEDS: SODIUM CHLORIDE 0.9% 500 ML 500 ML IV STA (12:45)
--- NOTE | 2024-12-23 12:50 | CT ---
EXAMINATION TYPE: CT brain cspine wo con DATE OF EXAM: 12/23/2024 12:30 PM COMPARISON: 12/12/2024. CLINICAL INDICATION: Female, 84 years old with history of syncope; Pt coming in for fall x this morni ng. Pt unsure if she had LOC. Aspirin. Hit back of head., pain TECHNIQUE: Brain: Multiple axial CT images of the brain were obtained without IV contrast. Cspine: Axial CT images from the skull base to the inferior aspect of T2 we obtained without intraven ous contrast. Coronal and sagittal reformatted images were also reviewed. . CT DLP: 1590.6 mGycm, Automated exposure control for dose reduction was used. FINDINGS: Brain: Extra-axial spaces: No abnormal extra-axial fluid collections. Ventricular system: Dilatation in proportion to cerebral atrophy. Cerebral parenchyma: Cerebral atrophy. No acute intraparenchymal hemorrhage or mass effect. The pena -white junction is well differentiated. Scattered hypoattenuating areas are seen within the white mat ter. Cerebellum: Unremarkable. Mass effect: No evidence of midline shift. Intracranial vasculature: unremarkable Soft tissues: Posterior scalp hematoma measuring 38 x 9 mm. No evidence of fracture. Calvarium/osseous structures: No depressed skull fracture. Paranasal sinuses and mastoid air cells: Mild scattered mucosal thickening and or secretions. Visualized orbits: Bilateral aphakia Cervical spine: Fracture: None. Osseous structures: Multilevel degenerative disc disease changes with endplate spurring and disc oste ophyte complex's. Ankylosis of the lateral facets of C2-C3 on the left. Vertebral alignment: Within normal limits. Spinal canal/Neural Foramina: No evidence of significant spinal canal narrowing. No evidence for sign ificant neural foraminal stenosis. Neck soft tissues: Prevertebral soft tissues are within normal limits. Other: The airway is patent. Atherosclerosis of the carotid bifurcation prominent nonenlarged lymph n odes in the lower neck and mediastinum unchanged from prior. IMPRESSION: 1. No acute intracranial process. 2. Nonspecific white matter changes, likely secondary to chronic small vessel ischemic disease. 3. Posterior scalp hematoma measuring 38 x 9 mm. No evidence of fracture. 4. No evidence of cervical spine fracture. 5. Moderate multilevel degenerative disc disease. [facility], , 12/23/2024 12:47 PM
[2024-12-23 12:53] LABS: Basophils # (A) 0.03 10*3/uL (0.00-0.10); Basophils % (A) 0.4 %; Eosinophils # (A) 0.05 10*3/uL (0.04-0.35); Eosinophils % (A) 0.7 %; HCT 44.1 % (37.2-46.3); Lymphocytes # (A) 1.93 10*3/uL (0.90-5.00); MCH 31.2 pg (27.0-32.0); MCV 91.7 fL (80.0-97.0); Mean Platelet Volume 9.4 fL (9.5-12.2); Monocytes # (A) 0.52 10*3/uL (0.20-1.00); Neutrophils # (A) 4.84 10*3/uL (1.80-7.70); Neutrophils % (A) 65.1 %; Platelet Count 151 10*3/uL (140-440); RBC 4.81 10*6/uL (4.10-5.20); RDW 12.5 % (11.5-14.5); WBC 7.43 10*3/uL (4.50-10.00)
[2024-12-23 12:59] LABS: ALT 21 U/L (4-34); AST 35 U/L (14-36); African American GFR (CKD) >90 (>60 ml/min/1.73 sqM); Albumin 3.6 g/dL (3.5-5.0); Alkaline Phosphatase 68 U/L (38-126); Anion Gap 7 mmol/L; Blood Urea Nitrogen 17 mg/dL (7-17); Carbon Dioxide 27 mmol/L (22-30); Chloride 104 mmol/L (98-107); Glucose 212 mg/dL (74-99); Non-African American GFR(CKD) 80 (>60 ml/min/1.73 sqM); Potassium 4.1 mmol/L (3.5-5.1); Sodium 138 mmol/L (137-145); Total Bilirubin 0.5 mg/dL (0.2-1.3); Total Protein 6.3 g/dL (6.3-8.2)
[2024-12-23 13:04] LABS: Partial Thromboplastin Time 21.5 sec (22.0-30.0); Prothrombin Time 11.1 sec (10.0-12.5)
--- NOTE | 2024-12-23 13:29 | ED ---
General Adult HPI - General Chief complaint: Fall Stated complaint: fall on thinners Time Seen by Provider: 12/23/24 11:15 Source: patient Mode of arrival: EMS Limitations: no limitations - History of Present Illness Initial comments: 84-year-old female with past medical history of diabetes, thyroid disorder who presents emergency department for syncope. Grandchele is at bedside and provides the history. Grandson states that he heard a thump in the other room. He went into find his grandmother on the floor flat on her back. Patient does not recall what happened. She does not remember falling. She denies feeling any symptoms like chest pain or shortness of breath. Her grandson was able to get her up off the floor and walk her to a chair. He states that she was her normal self at that time. They did find that the patient had a large hematoma to the back of her head. She takes a baby aspirin but no other blood thinners. Patie nt denies a headache or visual changes. No lateralizing weakness. No pain in her arms or legs. Patient was seen on the for similar complaint although at that time she had a near syncopal episode. She was evaluated in the ER and sent home as they could not find a reason for her episode. Patient denies any recent illnesses. No recent medication changes. No other alleviating, precipitating or modifying factors - Related Data Home Medications Medication Instructions Recorded Confirmed Aspirin EC [Ecotrin Low Dose] 81 mg PO HS 12/13/16 12/23/24 Levothyroxine Sodium [Synthroid] 125 mcg PO [id number] 12/13/16 12/23/24 Donepezil [Aricept] 10 mg PO DAILY 01/28/24 12/23/24 Levothyroxine Sodium [Synthroid] 75 mcg PO MO 01/28/24 12/23/24 Rosuvastatin Calcium [Crestor] 5 mg PO HS 01/28/24 12/23/24 sitaGLIPtin [Januvia] 100 mg PO DAILY 01/28/24 12/23/24 Alendronate Sodium 70 mg PO SA 12/23/24 12/23/24 Caleifood Supplement 1 tab PO TID-W/MEALS 12/23/24 12/23/24 Escitalopram [Lexapro] 20 mg PO HS 12/23/24 12/23/24 Memantine [Namenda] 5 mg PO BID 12/23/24 12/23/24 lisinopriL [Zestril] 2.5 mg PO HS 12/23/24 12/23/24 Previous Rx's Medication Instructions Recorded Meclizine HCl [Dramamine] 25 mg PO QID PRN #20 tab 12/12/24 Allergies Allergy/AdvReac Type Severity Reaction Status Date / Time meperidine [From Demerol] AdvReac Nausea & Verified 12/23/24 18:01 Vomiting Review of Systems ROS Statement: Those systems with pertinent positive or pertinent negative responses have been documented in the HPI. ROS Other: All systems not noted in ROS Statement are negative. Past Medical History Past Medical History: Diabetes Mellitus, Osteoarthritis (OA), Thyroid Disorder History of Any Multi-Drug Resistant Organisms: None Reported Past Surgical History: Hysterectomy, Orthopedic Surgery Additional Past Surgical History / Comment(s): Bilateral cateract removal and intraocular lens inplants Past Psychological History: No Psychological Hx Reported Past Alcohol Use History: None Reported Past Drug Use History: None Reported - Past Family History Father Additional Family Medical History / Comment(s): Father at age 47 with history of diabetes and myocardial infarction at age 38. Mother Additional Family Medical History / Comment(s): Mother at age 100 with known cardiomyopathy. Sister(s) Additional Family Medical History / Comment(s): Patient has 3 sisters with no major medical problems. Patient does not have any brothers. Daughter(s) Additional Family Medical History / Comment(s): Patient has 3 daughters no major medical problems. General Exam Limitations: no limitations General appearance: alert, in no apparent distress Head exam: Present: normocephalic, other (Hematoma occiput measuring 3 cm) Eye exam: Present: normal appearance, PERRL, EOMI. Absent: scleral icterus, conjunctival injection, periorbital swelling ENT exam: Present: normal exam, mucous membranes moist Neck exam: Present: normal inspection. Absent: tenderness, meningismus, lymphadenopathy Respiratory exam: Present: normal lung sounds bilaterally. Absent: respiratory distress, wheezes, rales, rhonchi, stridor Cardiovascular Exam: Present: regular rate, normal rhythm, normal heart sounds. Absent: systolic murmur, diastolic murmur, rubs, gallop, clicks GI/Abdominal exam: Present: soft, normal bowel sounds. Absent: distended, tenderness, guarding, rebound, rigid Extremities exam: Present: normal inspection, full ROM, normal capillary refill. Absent: tenderness, pedal edema, joint swelling, calf tenderness Back exam: Present: normal inspection Neurological exam: Present: alert, oriented X3, CN II-XII intact Psychiatric exam: Present: normal affect, normal mood Skin exam: Present: warm, dry, intact, normal color. Absent: rash Course Vital Signs 12/23/24 12/23/24 12/23/24 11:13 15:27 15:30 Temperature 98.4 F Pulse Rate 81 Pulse Rate [ 66 Sitting Transport Operations Inspector] Pulse Rate [ Standing Transport Operations Inspector ] Pulse Rate [ 61 Supine Transport Operations Inspector] Respiratory 17 20 20 Rate Blood Pressure 116/72 Blood Pressure 127/65 [Right Arm Sitting] Blood Pressure [Right Arm Standing] Blood Pressure 139/65 [Right Arm Supine] O2 Sat by Pulse 98 98 97 Oximetry 12/23/24 12/23/24 12/23/24 15:32 17:00 18:27 Temperature Pulse Rate 61 71 Pulse Rate [ Sitting Transport Operations Inspector] Pulse Rate [ 77 Standing Transport Operations Inspector ] Pulse Rate [ Supine Transport Operations Inspector] Respiratory 20 21 22 Rate Blood Pressure 146/69 97/65 Blood Pressure [Right Arm Sitting] Blood Pressure 108/59 [Right Arm Standing] Blood Pressure [Right Arm Supine] O2 Sat by Pulse 96 97 98 Oximetry Medical Decision Making - Medical Decision Making Was pt. sent in by a medical professional or institution (, [facility], STRATEGIC ACCOUNTS MANAGER, urgent care, hospital, or half-way...) When possible be specific @ -No Did you speak to anyone other than the patient for history (EMS, parent, family, police, friend...)? What history was obtained from this source @ -Spoke with the grandson for history Did you review nursing and triage notes (agree or disagree)? Why? @ -I reviewed and agree with nursing and triage notes Were old charts reviewed (outside hosp., previous admission, EMS record, old EKG, old radiological studies, urgent care reports/EKG's, half-way records)? Report findings @ -I reviewed the chart from December 12 where patient was evaluated for near syncope Differential Diagnosis (chest pain, altered mental status, abdominal pain women, abdominal pain men, vaginal bleeding, weakness, fever, dyspnea, syncope, headache, dizziness, GI bleed, back pain, seizure, CVA, palpatations, mental health, musculoskeletal)? @ -Differential Syncope: Valvular disease, hypertrophic cardiomyopathy, pulmonary embolism, tamponade, tachycardia, bradycardia, DE, hypovolemia, hemorrhage, dissection, anemia, in tracranial hemorrhage, seizure, hypoglycemia, carbon monoxide poisoning, this is not meant to be an all-inclusive list. EKG interpreted by me (3pts min.). @ -Yes and demonstrates sinus bradycardia with a rate of 57. WA interval 182. QRS 148. QTc of 445. Left bundle branch block. No acute ST segment elevations X-rays interpreted by me (1pt min.). @ -None done CT interpreted by me (1pt min.). @ -yes which demonstrates scalp hematoma with no intracranial process U/S interpreted by me (1pt. min.). @ -None done What testing was considered but not performed or refused? (CT, X-rays, U/S, la bs)? Why? @ -None What meds were considered but not given or refused? Why? @ -None Did you discuss the management of the patient with other professionals (professionals i.e. , PA, STRATEGIC ACCOUNTS MANAGER, lab, RT, psych nurse, medical social worker, outreach manager, teacher, armed security officer, director case management)? Give summary @ -Spoke with Dr. Huddleston who will admit the patient for echo and carotids Was smoking cessation discussed for >3mins.? @ -No Was critical care preformed (if so, how long)? @ -No Were there social determinants of health that impacted care today? How? (Homelessness, low income, unemployed, alcoholism, drug addiction, transportation, low edu. Level, literacy, decrease access to med. care, penitentiary, rehab)? @ -No Was there de-escalation of care discussed even if they declined (Discuss DNR or withdrawal of care, Hospice)? DNR status @ -No What co-morbidities impacted this encounter? (DM, HTN, Smoking, COPD, CAD, Cancer, CVA, ARF, Chemo, Hep., AIDS, mental health diagnosis, sleep apnea, morbid obesity)? @ -None Was patient admitted / discharged? Hospital course, mention meds given and route, prescriptions, significant lab abnormalities, going to OR and other pertinent info. @ -Upon arrival patient seen and evaluated in room 20. Thorough history and physical exam was performed. Laboratory studies are conducted. CT of the brain was performed. Results are discussed with the patient and family. As this the patient's second episode with syncope/near syncope I did recommend admission for further workup. Family and patient were agreeable to this. Spoke with Dr. Huddleston for the admission Undiagnosed new problem with uncertain prognosis? @ -No Drug Therapy requiring intensive monitoring for toxicity (Heparin, Nitro, Insulin, Cardizem)? @ -No Were any procedures done? @ -No Diagnosis/symptom? @ -Acute syncope, fall, blunt head trauma, scalp hematoma Acute, or Chronic, or Acute on Chronic? @ -Acute Uncomplicated (without systemic symptoms) or Complicated (systemic symptoms)? @ -Complicated Side effects of treatment? @ -No Exacerbation, Progression, or Severe Exacerbation? @ -No Poses a threat to life or bodily function? How? (Chest pain, USA, DE, pneumonia, PE, COPD, DKA, ARF, appy, cholecystitis, CVA, Diverticulitis, Homicidal, Suicidal, threat to staff... and all critical care pts) @ -No - Lab Data Result diagrams: 12/23/24 12:43 12/23/24 12:43 Lab Results 12/23/24 12/23/24 12/23/24 Range/Units 12:43 12:43 12:43 WBC 7.43 (4.50-10.00) 10*3/uL RBC 4.81 (4.10-5.20) 10*6/uL Hgb 15.0 (12.0-15.0) g/dL Hct 44.1 (37.2-46.3) % MCV 91.7 (80.0-97.0) fL MCH 31.2 (27.0-32.0) pg MCHC 34.0 (32.0-37.0) g/dL Plt Count 151 (140-440) 10*3/uL MPV 9.4 L (9.5-12.2) fL Immature Gran % (Auto) 0.8 % Neutrophils % 65.1 % Lymphocytes % 26.0 % Monocytes % 7.0 % Eosinophils % 0.7 % Basophils % 0.4 % Immature Gran # 0.06 H (0.00-0.04) 10*3/uL Neutrophils # 4.84 (1.80-7.70) 10*3/uL Lymphocytes # 1.93 (0.90-5.00) 10*3/uL Monocytes # 0.52 (0.20-1.00) 10*3/uL Eosinophils # 0.05 (0.04-0.35) 10*3/uL Basophils # 0.03 (0.00-0.10) 10*3/uL PT 11.1 (10.0-12.5) sec INR 1.0 (<1.2) APTT 21.5 L (22.0-30.0) sec Sodium 138 (137-145) mmol/L Potassium 4.1 (3.5-5.1) mmol/L Chloride 104 (98-107) mmol/L Carbon Dioxide 27 (22-30) mmol/L Anion Gap 7 mmol/L BUN 17 (7-17) mg/dL Creatinine 0.70 (0.52-1.04) mg/dL Est GFR (CKD-EPI)AfAm >90 (>60 ml/min/1.73 sqM) Est GFR (CKD-EPI)NonAf 80 (>60 ml/min/1.73 sqM) Glucose 212 H (74-99) mg/dL Calcium 10.0 (8.4-10.2) mg/dL Total Bilirubin 0.5 (0.2-1.3) mg/dL AST 35 (14-36) U/L ALT 21 (4-34) U/L Alkaline Phosphatase 68 (38-126) U/L Troponin I (0.000-0.034) ng/mL Total Protein 6.3 (6.3-8.2) g/dL Albumin 3.6 (3.5-5.0) g/dL TSH (0.465-4.680) mIU/L Free T4 (0.78-2.19) ng/dL Urine Color Urine Appearance (Clear) Urine pH (5.0-8.0) Ur Specific Ray (1.001-1.035) Urine Protein (Negative) Urine Glucose (UA) (Negative) Urine Ketones (Negative) Urine Blood (Negative) Urine Nitrite (Negative) Urine Bilirubin (Negative) Urine Urobilinogen (<2.0) mg/dL Ur Leukocyte Esterase (Negative) 12/23/24 12/23/24 12/23/24 Range/Units 12:43 12:43 13:31 WBC (4.50-10.00) 10*3/uL RBC (4.10-5.20) 10*6/uL Hgb (12.0-15.0) g/dL Hct (37.2-46.3) % MCV (80.0-97.0) fL MCH (27.0-32.0) pg MCHC (32.0-37.0) g/dL Plt Count (140-440) 10*3/uL MPV (9.5-12.2) fL Immature Gran % (Auto) % Neutrophils % % Lymphocytes % % Monocytes % % Eosinophils % % Basophils % % Immature Gran # (0.00-0.04) 10*3/uL Neutrophils # (1.80-7.70) 10*3/uL Lymphocytes # (0.90-5.00) 10*3/uL Monocytes # (0.20-1.00) 10*3/uL Eosinophils # (0.04-0.35) 10*3/uL Basophils # (0.00-0.10) 10*3/uL PT (10.0-12.5) sec INR (<1.2) APTT (22.0-30.0) sec Sodium (137-145) mmol/L Potassium (3.5-5.1) mmol/L Chloride (98-107) mmol/L Carbon Dioxide (22-30) mmol/L Anion Gap mmol/L BUN (7-17) mg/dL Creatinine (0.52-1.04) mg/dL Est GFR (CKD-EPI)AfAm (>60 ml/min/1.73 sqM) Est GFR (CKD-EPI)NonAf (>60 ml/min/1.73 sqM) Glucose (74-99) mg/dL Calcium (8.4-10.2) mg/dL Total Bilirubin (0.2-1.3) mg/dL AST (14-36) U/L ALT (4-34) U/L Alkaline Phosphatase (38-126) U/L Troponin I <0.012 (0.000-0.034) ng/mL Total Protein (6.3-8.2) g/dL Albumin (3.5-5.0) g/dL TSH 0.188 L (0.465-4.680) mIU/L Free T4 1.79 (0.78-2.19) ng/dL Urine Color Light Yellow Urine Appearance Clear (Clear) Urine pH 6.0 (5.0-8.0) Ur Specific Ray 1.031 (1.001-1.035) Urine Protein Negative (Negative) Urine Glucose (UA) 4+ H (Negative) Urine Ketones Negative (Negative) Urine Blood Negative (Negative) Urine Nitrite Negative (Negative) Urine Bilirubin Negative (Negative) Urine Urobilinogen <2.0 (<2.0) mg/dL Ur Leukocyte Esterase Negative (Negative) Disposition Clinical Impression: Syncope, Head injury Disposition: ADMITTED IP TO [facility] Condition: Stable Is patient prescribed a controlled substance at d/c from ED?: No Time of Disposition: 14:51 Decision to Admit Reason: Admit from EC Decision Date: 12/23/24 Decision Time: 14:51
[2024-12-23 13:37] LABS: Appearance,Urine Clear (Clear); Bilirubin,Urine Negative (Negative); Blood,Urine Negative (Negative); Color,Urine Light Yellow; Glucose,Urine (UA) 4+ (Negative); Ketones,Urine Negative (Negative); Leukocyte Esterase,Urine Negative (Negative); Nitrite,Urine Negative (Negative); Protein,Urine Negative (Negative); Specific Gravity,Urine 1.031 (1.001-1.035); Urobilinogen,Urine <2.0 mg/dL (<2.0)
[2024-12-23] MEDS ORDERED: ACETAMINOPHEN TAB 325 MG TAB PO PRN (14:52)
[2024-12-23] MEDS ORDERED: NALOXONE 0.4 MG/ML 1 ML VIAL IV PRN (14:52)
[2024-12-23] MEDS: SODIUM CHLORIDE 0.9% 1,000 ML IV SCH (15:08)
--- NOTE | 2024-12-23 15:40 | US ---
EXAMINATION TYPE: US carotid duplex BILAT DATE OF EXAM: 12/23/2024 COMPARISON: 2019 CLINICAL INDICATION: Female, 84 years old with history of syncope; Syncope Additional History: .... TECHNIQUE: Grayscale, color Doppler and spectral Doppler evaluation of the bilateral carotid systems and vertebral arteries. Indirect Doppler criteria was utilized. FINDINGS: EXAM MEASUREMENTS: RIGHT: Peak Systolic Velocity (PSV) cm/sec ----- Right CCA: 108.5 ----- Right ICA: 122.5 ----- Right ECA: 87.8 ICA/CCA ratio: 1.1 RIGHT: End Diastole cm/sec ----- Right CCA: 14.0 ----- Right ICA: 19.3 ----- Right ECA: 0.0 LEFT: Peak Systolic Velocity (PSV) cm/sec ----- Left CCA: 97.3 ----- Left ICA: 69.4 ----- Left ECA: 62.5 ICA/CCA ratio: 0.7 LEFT: End Diastole cm/sec ----- Left CCA: 10.1 ----- Left ICA: 18.8 ----- Left ECA: 0.0 VERTEBRALS (direction of flow): Right Vertebral: Antegrade Left Vertebral: Antegrade Rhythm: Normal GAMBLING BOX PERSON NOTES: No elevated velocities. *Some plaque seen within bilateral bifurcations. IMPRESSION: 1. Mild plaque within the carotid bifurcations without significant flow-limiting stenosis based on ve locities. Criteria for Assigning % of Stenosis / Diameter reduction (Estimation based on the indirect measurements of the internal carotid artery velocities (ICA PSV). 1. Normal (no stenosis)=ICA PSV < 180 cm/s: ratio < 2.0: ICA EDV<40 cm/s. 2. Less than 50% stenosis=ICA PSV < 180 cm/s: ratio < 2.0: ICA EDV<40 cm/s. 3. 50 to 69% stenosis=ICA PSV of 180 to 230 cm/s: ration 2.0 ? 4.0: ICA EDV 40-100 cm/s. PSV 125-180 cm/sec and ICA/CCA PSV Ratio ? 2.0 is also consistent with 50-69% stenosis 4. Greater than 70% stenosis to near occlusion= ICA PSV > 230 cm/s: ratio > 4.0: ICA EDV > 100 cm/s. 5. Near occlusion= ICA PSV velocities may be low or undetectable: variable ratio and ICA EDV. 6. Total occlusion=unable to detect flow. [facility], , 12/23/2024 3:38 PM
[2024-12-23 17:03] LABS: T4, Free (Free Thyroxine) 1.79 ng/dL (0.78-2.19)
[2024-12-23] MEDS ORDERED: MECLIZINE 25 MG TAB PO PRN (18:14)
[2024-12-23 19:21] VITALS: BP 97/65; PULSE 71; RESP 22
[2024-12-23] MEDS ORDERED: ASPIRIN 81 MG PO SCH (21:00)
[2024-12-23] MEDS ORDERED: MEMANTINE 5 MG TAB PO SCH (21:00)
[2024-12-23] MEDS ORDERED: ATORVASTATIN 10 MG TAB PO SCH (21:00)
[2024-12-23] MEDS ORDERED: ESCITALOPRAM 20 MG TAB PO SCH (21:00)
--- NOTE | 2024-12-23 21:15 | HP ---
HISTORY AND PHYSICAL CHIEF COMPLAINT: Fall. HISTORY OF PRESENT ILLNESS: This 84-year-old woman with a past history of multiple medical problems including diabetes mellitus, was living with grandson, was on upstairs. Grandson heard a thud and the patient apparently passed out for a minute. The patient had a presyncopal episode about a week ago. The patient was taken to [facility] for evaluation and treatment. There is no history of fever, rigors, or chills at this time. PAST MEDICAL HISTORY: Reviewed include diabetes mellitus, hypothyroidism. Rest of the history and the chart is also reviewed. HOME MEDICATIONS: Reviewed. Include Lexapro. Doses and rest of medications reviewed. ALLERGIES: Demerol. FAMILY HISTORY: History of diabetes and hypertension in family. SOCIAL HISTORY: No history of smoking of alcohol. REVIEW OF SYSTEMS: A 14-point review of systems negative except as mentioned earlier. PHYSICAL EXAMINATION: VITAL SIGNS: Pulse 61, blood pressure 140/69, and respirations 21. HEENT: Conjunctivae normal. NECK: No jugular venous distention. CARDIOVASCULAR: S1, S2. RESPIRATION: Breath sounds diminished at the bases. ABDOMEN: Soft, nontender. LEGS: No edema. NERVOUS SYSTEM: No nystagmus. No focal deficits. SKIN: No rash. JOINTS: No active deforming, arthropathy. LABORATORY DATA: Reviewed. Glucose 212. ASSESSMENT: 1. Syncope for evaluation, rule out cardiac arrhythmia or vasovagal syncope. 2. Rule out orthostatic hypotension. 3. Diabetes mellitus, type 2. 4. Degenerative joint disease. 5. Hypothyroidism. RECOMMENDATIONS: This 84-year-old woman presented with multiple complex medical issues. We will monitor the patient closely. I would recommend current medication, telemetry, Cardiology consultation, possible outpatient monitoring. We will recommend a 2D echo with Doppler and carotid ultrasound also. The prognosis is guarded because of multiple complex medical issues, and further recommendations to follow. See orders for further details. Home medications will be continued once they are confirmed. MMODL / IJN: [id number] /
[2024-12-24] MEDS ORDERED: LEVOTHYROXINE 125 MCG TAB PO SCH (06:30)
[2024-12-24] MEDS ORDERED: DONEPEZIL 10 MG TAB PO SCH (09:00)
[2024-12-24] MEDS ORDERED: LINAGLIPTIN 5 MG TABLET PO SCH (09:00)
[2024-12-28] MEDS ORDERED: LEVOTHYROXINE 75 MCG TAB PO SCH (06:30)
== END 2024-12-23 20:37 | disposition left against medical advice (07) ==
LOC: EC 11:10 → 6NMEDSUR 14:53
PROVIDERS: ADMIT Hospitalist; ATTEND Hospitalist
DX: R55 Syncope and collapse (principal); Z53.29 Procedure and treatment not carried out because of patient's decision for other reasons; E11.9 Type 2 diabetes mellitus without complications; S00.03XA Contusion of scalp, initial encounter; W19.XXXA Unspecified fall, initial encounter; E03.9 Hypothyroidism, unspecified; M19.90 Unspecified osteoarthritis, unspecified site; Z79.890 Hormone replacement therapy; Z79.899 Other long term (current) drug therapy; Z79.84 Long term (current) use of oral hypoglycemic drugs; Z79.82 Long term (current) use of aspirin; Z88.6 Allergy status to analgesic agent
CPT/HCPCS: 99285; 36415; 93005; 84439; 80053; 84443; 84484; 85025; 85610; 85730; 81003; 71046; 93880; 72125; 70450; G0378